=== PATIENT | female | born 1930 | race Hispanic/Latino ===

== ENCOUNTER 2017-03-24 20:48 | Inpatient (IN) | payer MEDICARE ==
[2017-03-24 20:53] VITALS: BMI 24.7
--- NOTE | 2017-03-24 21:17 | ED PDOC ---
Arrival/HPI - General Chief Complaint: Trauma Time Seen by Provider: 03/24/17 20:52 Historian: Patient, Family - History of Present Illness Narrative History of Present Illness (Text): 03/24/17 21:15 Margaret Adames is an 87 year old female, whose past medical history includes atrial fibrillation and hypertension, who presents to the emergency department accompanied by family status post fall today. Daughter states patient fell on to the floor earlier today while trying to get up from her couch. Daughter states she did not witness the fall and notes patient was unable to get up from the floor on her own. Patient is unable to ambulate and is complaining of urinary incontinence. Patient does not regularly take blood thinners. Patient denies any fever, chills, chest pain, shortness of breath, abdominal pain, nausea, vomiting, diarrhea, urinary symptoms, back pain, neck pain, headache, dizziness, vision changes, focal neurological deficits, or any other complaints. PMD: Dr. Yoel Tabor Poker Room Manager: Dr. Gisele Pinedo Time/Duration: Other (today) Symptom Onset: Gradual Symptom Course: Unchanged Activities at Onset: Light Context: Standing, Home, Tripped Past Medical History - Provider Review Nursing Documentation Reviewed: Yes - Infectious Disease Hx of Infectious Diseases: None - Reproductive Menopause: Yes - Cardiac Hx Cardiac Arrhythmia: Yes - Psychiatric Hx Substance Use: No - Anesthesia Hx Anesthesia: No Hx Anesthesia Reactions: No Hx Malignant Hyperthermia: No Family/Social History - Physician Review Nursing Documentation Reviewed: Yes Family/Social History: Unknown Family HX Smoking Status: Never Smoked Hx Alcohol Use: No Hx Substance Use: No Allergies/Home Meds Allergies/Adverse Reactions: Allergies No Known Allergies Allergy (Unverified 03/24/17 21:17) Home Medications: Home Meds Medication Instructions Recorded Confirmed Aspirin [Ecotrin] 81 mg PO DAILY 03/24/17 03/24/17 Digoxin 125 mcg PO DAILY 03/24/17 03/24/17 Nadolol/Bendroflumethiazide 20 mg PO DAILY 03/24/17 03/24/17 [[place] 40-5 Tablet] Review of Systems - Physician Review All systems were reviewed & negative as marked: Yes - Review of Systems Constitutional: Normal. absent: Fevers Eyes: Normal ENT: Normal Respiratory: Normal. absent: SOB, Cough Cardiovascular: Normal. absent: Chest Pain Gastrointestinal: Normal. absent: Abdominal Pain, Diarrhea, Nausea, Vomiting Genitourinary Female: Urine Output Changes Musculoskeletal: Normal. absent: Back Pain, Neck Pain Skin: Normal Neurological: Normal Endocrine: Normal Hemo/Lymphatic: Normal Psychiatric: Normal Physical Exam Vital Signs Reviewed: Yes Vital Signs Temp Pulse Resp BP Pulse Ox 03/24/17 22:49 71 16 147/72 98 03/24/17 20:53 98.7 F 68 20 185/85 H 99 Temperature: Afebrile Blood Pressure: Hypertensive Pulse: Regular Respiratory Rate: Normal Appearance: Positive for: Well-Appearing, Non-Toxic, Comfortable Pain Distress: None Mental Status: Positive for: Alert and Oriented X 3 - Systems Exam Head: Present: Atraumatic, Normocephalic Pupils: Present: PERRL Extroacular Muscles: Present: EOMI Conjunctiva: Present: Normal Mouth: Present: Moist Mucous Membranes Neck: Present: Normal Range of Motion Respiratory/Chest: Present: Clear to Auscultation, Good Air Exchange. No: Respiratory Distress, Accessory Muscle Use Cardiovascular: Present: Regular Rate and Rhythm, Normal S1, S2. No: Murmurs Abdomen: Present: Normal Bowel Sounds. No: Tenderness, Distention, Peritoneal Signs Back: Present: Normal Inspection. No: CVA Tenderness, Midline Tenderness Upper Extremity: Present: Normal Inspection, Normal ROM, NORMAL PULSES, Neurovascularly Intact, Capillary Refill < 2s. No: Cyanosis, Edema, Tenderness , Swelling, Erythema Lower Extremity: Present: NORMAL PULSES, Normal ROM, Erythema (Erythema to left anterior knee surface), Neurovascularly Intact. No: Edema, Swelling, Deformity , Temperature Abnormalties Neurological: Present: GCS=15, CN II-XII Intact, Speech Normal Skin: Present: Warm, Dry, Normal Color. No: Rashes Psychiatric: Present: Alert, Oriented x 3, Normal Insight, Normal Concentration Medical Decision Making ED Course and Treatment: 03/24/17 21:15 Impression: 87 year old female presents s/p fall, unable to ambulate, c/o urinary incontinence. Plan: -- CT Head w/o contrast -- EKG -- CXR -- XR Hips -- XR Left Knee -- Labs, cardiac enzymes -- Urinalysis, urine cultures -- Reassess and disposition Progress Notes: Reviewed EKG, a fib at 60 bpm. LAD. Anteroseptal infarct. 03/24/17 22:42 Reviewed radiology, CXR shows no acute processes. XR Left Knee shows no acute processes/fracture. XR Hips: Bones/joints: Moderate degenerative disease. Diffuse bony demineralization. No acute fracture. No dislocation. Soft tissues: Unremarkable. IMPRESSION: Degenerative disease, without acute fracture. 03/24/17 23:[address] Head, shows: Brain: No acute intracranial hemorrhage. Age-appropriate periventricular white matter disease. No edema. Ventricles: Age-appropriate ventriculomegaly. Bones: No acute displaced fracture. Sinuses: Unremarkable as visualized. No acute sinusitis. Mastoid air cells: Unremarkable as visualized. No mastoid effusion. IMPRESSION: No acute intracranial hemorrhage, or suspicious mass effect 03/25/17 00:[address] Ponce, who is aware and agrees with plan. Accepts pt in to his service. Pt will go to remote telemetry observation for near-syncope and UTI. Pt is no acute distress. Discussed results and hospital observation plan with family and pt, who are aware and verbalize understanding. - Lab Interpretations Lab Results: 03/24/17 21:20 03/24/17 21:20 Lab Results 03/25/17 10:05: Digoxin 0.7 L 03/24/17 21:42: Urine Color yellow, Urine Appearance Slight-cloudy, Urine pH 7.0 , Ur Specific [place] 1.020, Urine Protein 30 H, Urine Glucose (UA) Negative, Urine Ketones Negative, Urine Blood Large H, Urine Nitrate Positive H, Urine Bilirubin Negative, Urine Urobilinogen 0.2, Ur Leukocyte Esterase Large H, Urine RBC 25 - 30, Urine WBC 5 - 10, Ur Epithelial Cells Many, Amorphous Sediment Small, Urine Bacteria Small 03/24/17 21:20: Sodium 135, Potassium 3.9, Chloride 96 L, Carbon Dioxide 29, Anion Gap 14, BUN 20, Creatinine 0.8, Est GFR ( Amer) > 60, Est GFR (Non- Af Amer) > 60, Random Glucose 120 H, Calcium 10.8 H, Total Bilirubin 1.0, AST 36 , ALT 38, Alkaline Phosphatase 42, Lactate Dehydrogenase 476, Total Creatine Kinase 68, Troponin I 0.02, Total Protein 7.7, Albumin 4.3, Globulin 3.4, Albumin/Globulin Ratio 1.3 03/24/17 21:20: WBC 13.1 H, RBC 4.35, Hgb 13.6, Hct 39.3, MCV 90.3, MCH 31.3, MCHC 34.6, RDW 13.4, Plt Count 207, MPV 10.0 03/24/17 21:20: PT 12.6 H, INR 1.15 H, APTT 31.3 I have reviewed the lab results: Yes - RAD Interpretation Radiology Orders: 03/24/17 21:18 CHEST PORTABLE [RAD] Stat 03/24/17 21:19 HEAD W/O CONTRAST [CT] Stat 03/24/17 21:20 Hip Bi with Pelvis Fall Protocol [HIP MIN 2V W/ PELVIS JESSICA] [RAD] Stat KNEE LEFT 2 VIEWS (AP & LAT) [RAD] Stat Numerical Control Machine Operator: ED Physician, Radiologist - EKG Interpretation Interpreted by ED Physician: Yes Type: 12 lead EKG - Medication Orders Current Medication Orders: Acetaminophen (Tylenol 325mg Tab) 650 mg PO Q4H PRN PRN Reason: pain Last Admin: 03/25/17 11:21 Dose: 650 mg [facility] Pain/Vitals Document 03/25/17 11:21 STATISTICAL FINANCIAL ANALYST (Rec: 03/25/17 11:21 STATISTICAL FINANCIAL ANALYST [id number]) Pain Reassessment Is This A Pain ReAssessment? Yes Sleep Is patient sleeping during reassessment? No Presence of Pain Presence of Pain Yes Location Pain Location Body [employer] [place] Re-Assess: [facility] Pain/Vitals Document 03/25/17 12:21 STATISTICAL FINANCIAL ANALYST (Rec: 03/25/17 12:26 STATISTICAL FINANCIAL ANALYST [id number]) Pain Reassessment Is This A Pain ReAssessment? Yes Sleep Is patient sleeping during reassessment? No Presence of Pain Presence of Pain No Aspirin (Ecotrin) 81 mg PO DAILY REPLACED BY [facility] Last Admin: 03/25/17 10:29 Dose: 81 mg Bacitracin (Bacitracin) 2 ea TOP BID REPLACED BY [facility] Last Admin: 03/25/17 11:21 Dose: 2 ea Docusate Sodium (Colace) 200 mg PO BID REPLACED BY [facility] Last Admin: 03/25/17 10:29 Dose: 200 mg Last Bowel Movement Document 03/25/17 10:29 STATISTICAL FINANCIAL ANALYST (Rec: 03/25/17 10:29 STATISTICAL FINANCIAL ANALYST [id number]) Last Bowel Movement Last Bowel Movement 03/25/17 Ceftriaxone Sodium (Rocephin 1 Gram Ivpb) 1 gm in 100 mls @ 100 mls/hr IVPB DAILY MATT PRN Reason: Protocol Last Admin: 03/25/17 10:29 Dose: 100 mls/hr eMAR Start Stop Document 03/25/17 10:29 STATISTICAL FINANCIAL ANALYST (Rec: 03/25/17 10:30 STATISTICAL FINANCIAL ANALYST [id number]) Intravenous Solution Start Date 03/25/17 Start Time 10:30 End Date 03/25/17 End time 11:30 Total Infusion Time 60 Discontinued Medications Acetaminophen (Tylenol 325mg Tab) 650 mg PO STAT STA Stop: 03/25/17 00:27 Last Admin: 03/25/17 00:30 Dose: 650 mg MAR Pain/Vitals Document 03/25/17 00:30 JOL (Rec: 03/25/17 00:48 JOL [id number]) Pain Reassessment Is This A Pain ReAssessment? No Sleep Is patient sleeping during reassessment? No Presence of Pain Presence of Pain Yes Pain Scale Used Pain Scale Used Numeric Location Pain Location Body [employer] [place] Intensity 6 Scale Used Numeric Ceftriaxone Sodium (Rocephin 1 Gram Ivpb) 1 gm in 100 mls @ 200 mls/hr IV ONCE STA PRN Reason: Protocol Stop: 03/25/17 00:05 Last Admin: 03/24/17 23:52 Dose: 200 mls/hr eMAR Start Stop Document 03/24/17 23:52 JOL (Rec: 03/24/17 23:52 JOL [id number]) Intravenous Solution Start Date 03/24/17 Start Time 23:52 End Date 03/25/17 End time 00:22 Total Infusion Time 30 Sodium Chloride (Sodium Chloride 0.9%) 1,000 mls @ 999 mls/hr IV .Q1H1M STA Stop: 03/25/17 00:36 Last Admin: 03/24/17 23:52 Dose: 999 mls/hr eMAR Start Stop Document 03/24/17 23:52 JOL (Rec: 03/24/17 23:52 JOL [id number]) Intravenous Solution Start Date 03/24/17 Start Time 23:52 End Date 03/25/17 End time 00:53 Total Infusion Time 61 - Scribe Statement The provider has reviewed the documentation as recorded by the Scribharris Ordoñez All medical record entries made by the Scribe were at my direction and personally dictated by me. I have reviewed the chart and agree that the record accurately reflects my personal performance of the history, physical exam, medical decision making, and the department course for this patient. I have also personally directed, reviewed, and agree with the discharge instructions and disposition. Disposition/Present on Arrival - Present on Arrival Any Indicators Present on Arrival: No History of DVT/PE: No History of Uncontrolled Diabetes: No Urinary Catheter: No History of Decub. Ulcer: No History Surgical Site Infection Following: None - Disposition Have Diagnosis and Disposition been Completed?: Yes Diagnosis: Near syncope, UTI (urinary tract infection) Disposition: HOSPITALIZED Disposition Time: 00:15 Patient Plan: Observation Patient Problems: Current Active Problems Problem Status Onset Near syncope Acute UTI (urinary tract infection) Acute Condition: GOOD
[2017-03-24 21:35] LABS: HEMATOCRIT 39.3 % (36.0-48.0); MEAN CELL VOLUME 90.3 fl (80.0-105.0); MEAN CORPUSCULAR HEMOGLOBIN 31.3 pg (25.0-35.0); MEAN CORPUSCULAR HGB CONC 34.6 g/dl (31.0-37.0); RED CELL DISTRIBUTION WIDTH 13.4 % (11.5-14.5); WHITE BLOOD COUNT 13.1 10^3/ul (4.5-11.0)
[2017-03-24 21:42] LABS: INR 1.15 (0.93-1.08); PARTIAL THROMBOPLASTIN TIME 31.3 Seconds (25.1-36.5)
[2017-03-24 21:43] LABS: ALB/GLOB RATIO 1.3 (1.1-1.8); ALKALINE PHOSPHATASE 42 U/L (38-126); ALT/SGPT 38 U/L (7-56); AST/SGOT 36 U/L (14-36); BLOOD UREA NITROGEN 20 mg/dL (7-21); CALCIUM 10.8 mg/dL (8.4-10.5); CARBON DIOXIDE 29 mmol/L (21-33); CHLORIDE 96 mmol/L (98-107); GFR AFRICAN-AMERICAN > 60; GLUCOSE,RANDOM 120 mg/dL (70-110); POTASSIUM 3.9 mmol/L (3.6-5.0); SODIUM 135 mmol/L (132-148); TOTAL PROTEIN 7.7 g/dL (5.8-8.3)
[2017-03-24 21:48] LABS: URINE APPEARANCE SLIGHT-CLOUDY (CLEAR); URINE BILIRUBIN NEGATIVE (NEGATIVE); URINE BLOOD LARGE (NEGATIVE); URINE GLUCOSE (UA) NEGATIVE (NEGATIVE); URINE KETONE NEGATIVE (NEGATIVE); URINE LEUKOCYTE ESTERASE LARGE Leu/uL (NEGATIVE); URINE PROTEIN 30 mg/dL (<30 mg/dL); URINE UROBILINOGEN 0.2 E.U./dL (<1 E.U./dL)
[2017-03-24 21:54] LABS: TROPONIN I 0.02 ng/mL
[2017-03-24 21:54] LABS: URINE AMORPHOUS SEDIMENT SMALL; URINE BACTERIA SMALL (NEG); URINE EPITHELIAL CELLS MANY /hpf (0-5); URINE RBC 25 - 30 /hpf (0-2)
--- NOTE | 2017-03-24 22:49 | RAD ---
EXAM: XR Bilateral Hips With Pelvis When Performed, 2 Views CLINICAL HISTORY: 87 years old, female; Injury or trauma; Fall; Initial encounter; Blunt trauma (contusions or hematomas); Bilateral; Hip TECHNIQUE: Two views of the bilateral hips, with pelvis when performed. COMPARISON: No relevant prior studies available. FINDINGS: Bones/joints: Moderate degenerative disease. Diffuse bony demineralization. No acute fracture. No dislocation. Soft tissues: Unremarkable. IMPRESSION: Degenerative disease, without acute fracture.
--- NOTE | 2017-03-24 23:06 | CT ---
EXAM: CT Head Without Intravenous Contrast CLINICAL HISTORY: 87 years old, female; Injury or trauma; Fall; Initial encounter; Sprain or strain TECHNIQUE: Axial computed tomography images of the head/brain without intravenous contrast. All CT scans at this facility use one or more dose reduction techniques, viz.: automated exposure control; ma/kV adjustment per patient size (including targeted exams where dose is matched to indication; i.e. head); or iterative reconstruction technique. COMPARISON: No relevant prior studies available. FINDINGS: Brain: No acute intracranial hemorrhage. Age-appropriate periventricular white matter disease. No edema. Ventricles: Age-appropriate ventriculomegaly. Bones: No acute displaced fracture. Sinuses: Unremarkable as visualized. No acute sinusitis. Mastoid air cells: Unremarkable as visualized. No mastoid effusion. IMPRESSION: No acute intracranial hemorrhage, or suspicious mass effect.
[2017-03-24] MEDS ORDERED: cefTRIAXone 1 gm 1 GM/100 ML BAG IV STA (23:36)
[2017-03-24] MEDS ORDERED: Sodium Chloride 0.9% 1,000 ML IV STA (23:36)
--- NOTE | 2017-03-25 09:58 | RAD ---
PROCEDURE: Left Knee Radiographs. HISTORY: Pain. COMPARISON: None. FINDINGS: BONES: Normal. No fracture. JOINTS: Normal. No osteoarthritis. JOINT EFFUSION: None. OTHER FINDINGS: None. IMPRESSION: Normal radiographs of the left knee.
--- NOTE | 2017-03-25 09:59 | RAD ---
HISTORY: fever COMPARISON: No prior. FINDINGS: LUNGS: No active pulmonary disease. PLEURA: No significant pleural effusion identified, no pneumothorax apparent. CARDIOVASCULAR: Mild cardiomegaly OSSEOUS STRUCTURES: No significant abnormalities. VISUALIZED UPPER ABDOMEN: Normal. OTHER FINDINGS: None. IMPRESSION: No active disease.
[2017-03-25] MEDS: cefTRIAXone 1 gm 1 GM/100 ML BAG IVPB SCH (10:29)
[2017-03-25] MEDS: Bacitracin 500 Units/gm Oint Foilpak UD TOP SCH ×2 (11:21→17:32)
--- NOTE | 2017-03-25 21:02 | CARD ---
APPROVED REPORT EKG Measurement Heart [id number] <Conclusion> Atrial fibrillation Left axis deviation Anteroseptal infarct, age undetermined Abnormal ECG
--- NOTE | 2017-03-26 01:00 | CP.PCM.PN ---
Subjective - Date & Time of Evaluation Date of Evaluation: 03/26/17 Time of Evaluation: 01:00 - Subjective Subjective: Nurse calls and tells that patient has had two pauses on monitor. 2.03,2.54 seconds each. Earlier had 4 pauses in the day time, was called. was also made aware. Asymptomatic now. She is sleeping.As per [place] she had neck pain earlier but is okay now. Was on nadolol and digoxin at home. Digoxin level is 0.7. This 87 year old white woman was admitted after a fall,for near syncope, has Leukocytosis, UTI. Has PMH of atrial fibrillation, HTN. Objective - Vital Signs/Intake and Output Vital Signs (last 24 hours): Temp Pulse Resp BP Pulse Ox 98.9 F 52 L 20 133/54 L 98 03/25/17 17:21 03/25/17 18:00 03/25/17 17:21 03/25/17 17:21 03/25/17 17:21 Intake and Output: 03/25/17 03/26/17 18:59 06:59 Intake Total 540 360 Output Total 775 300 Balance -235 60 - Medications Medications: Current Medications Acetaminophen (Tylenol 325mg Tab) 650 mg PO Q4H PRN PRN Reason: pain Last Admin: 03/25/17 17:31 Dose: 650 mg Aspirin (Ecotrin) 81 mg PO DAILY [facility] Last Admin: 03/25/17 10:29 Dose: 81 mg Bacitracin (Bacitracin) 2 ea TOP BID [facility] Last Admin: 03/25/17 17:32 Dose: 2 ea Docusate Sodium (Colace) 200 mg PO BID [facility] Last Admin: 03/25/17 17:29 Dose: Not Given Ceftriaxone Sodium (Rocephin 1 Gram Ivpb) 1 gm in 100 mls @ 100 mls/hr IVPB DAILY MATT PRN Reason: Protocol Last Admin: 03/25/17 10:29 Dose: 100 mls/hr - Labs Labs: PT 12.6 SECONDS (9.4-12.5) H 03/24/17 21:20 INR 1.15 (0.93-1.08) H 03/24/17 21:20 APTT 31.3 Seconds (25.1-36.5) 03/24/17 21:20 Most Recent Lab Values WBC 13.1 10^3/ul (4.5-11.0) H 03/24/17 21:20 RBC 4.35 10^6/uL (3.5-6.1) 03/24/17 21:20 Hgb 13.6 g/dL (12.0-16.0) 03/24/17 21:20 Hct 39.3 % (36.0-48.0) 03/24/17 21:20 MCV 90.3 fl (80.0-105.0) 03/24/17 21:20 MCH 31.3 pg (25.0-35.0) 03/24/17 21:20 MCHC 34.6 g/dl (31.0-37.0) 03/24/17 21:20 RDW 13.4 % (11.5-14.5) 03/24/17 21:20 Plt Count 207 10^3/uL (120.0-450.0) 03/24/17 21:20 MPV 10.0 fl (7.0-11.0) 03/24/17 21:20 PT 12.6 SECONDS (9.4-12.5) H 03/24/17 21:20 INR 1.15 (0.93-1.08) H 03/24/17 21:20 APTT 31.3 Seconds (25.1-36.5) 03/24/17 21:20 Sodium 135 mmol/L (132-148) 03/24/17 21:20 Potassium 3.9 mmol/L (3.6-5.0) 03/24/17 21:20 Chloride 96 mmol/L (98-107) L 03/24/17 21:20 Carbon Dioxide 29 mmol/L (21-33) 03/24/17 21:20 Anion Gap 14 (10-20) 03/24/17 21:20 BUN 20 mg/dL (7-21) 03/24/17 21:20 Creatinine 0.8 mg/dL (0.7-1.2) 03/24/17 21:20 Est GFR ( Amer) > 60 03/24/17 21:20 Est GFR (Non-Af Amer) > 60 03/24/17 21:20 Random Glucose 120 mg/dL (70-110) H 10/21/17 21:20 Calcium 10.8 mg/dL (8.4-10.5) H 03/24/17 21:20 Total Bilirubin 1.0 mg/dL (0.2-1.3) 03/24/17 21:20 AST 36 U/L (14-36) 03/24/17 21:20 ALT 38 U/L (7-56) 03/24/17 21:20 Alkaline Phosphatase 42 U/L (38-126) 03/24/17 21:20 Lactate Dehydrogenase 476 U/L (333-699) 03/24/17 21:20 Total Creatine Kinase 68 U/L (35-230) 03/24/17 21:20 Troponin I 0.02 ng/mL 03/24/17 21:20 Total Protein 7.7 g/dL (5.8-8.3) 03/24/17 21:20 Albumin 4.3 g/dL (3.0-4.8) 03/24/17 21:20 Globulin 3.4 gm/dL 03/24/17 21:20 Albumin/Globulin Ratio 1.3 (1.1-1.8) 03/24/17 21:20 Urine Color yellow (YELLOW) 03/24/17 21:42 Urine Appearance Slight-cloudy (CLEAR) 03/24/17 21:42 Urine pH 7.0 (4.7-8.0) 03/24/17 21:42 Ur Specific [place] 1.020 (1.005-1.035) 03/24/17 21:42 Urine Protein 30 mg/dL (<30 mg/dL) H 03/24/17 21:42 Urine Glucose (UA) Negative mg/dL (NEGATIVE) 03/24/17 21:42 Urine Ketones Negative mg/dL (NEGATIVE) 03/24/17 21:42 Urine Blood Large (NEGATIVE) H 03/24/17 21:42 Urine Nitrate Positive (NEGATIVE) H 03/24/17 21:42 Urine Bilirubin Negative (NEGATIVE) 03/24/17 21:42 Urine Urobilinogen 0.2 E.U./dL (<1 E.U./dL) 03/24/17 21:42 Ur Leukocyte Esterase Large [place]/uL (NEGATIVE) H 03/24/17 21:42 Urine RBC 25 - 30 /hpf (0-2) 03/24/17 21:42 Urine WBC 5 - 10 /hpf (0-6) 03/24/17 21:42 Ur Epithelial Cells Many /hpf (0-5) 03/24/17 21:42 Amorphous Sediment Small 03/24/17 21:42 Urine Bacteria Small (NEG) 03/24/17 21:42 Digoxin 0.7 ng/mL (0.8-2.0) L 03/25/17 10:05 - Constitutional Appears: Well, No Acute Distress - Head Exam Head Exam: ATRAUMATIC, NORMAL INSPECTION, NORMOCEPHALIC - Eye Exam Eye Exam: Normal appearance - ENT Exam ENT Exam: Normal External Ear Exam - Neck Exam Neck Exam: Normal Inspection - Respiratory Exam Respiratory Exam: NORMAL BREATHING PATTERN - Cardiovascular Exam Cardiovascular Exam: Bradycardia. absent: JVD - GI/Abdominal Exam GI & Abdominal Exam: absent: Distended - Rectal Exam Rectal Exam: Deferred - Exam Additional comments: Deferred. - Extremities Exam Extremities Exam: Normal Inspection - Back Exam Back Exam: NORMAL INSPECTION - Neurological Exam Additional comments: Asleep now. - Psychiatric Exam Additional comments: Asleep now. - Skin Skin Exam: Normal Color Assessment and Plan - Assessment and Plan (Free Text) Assessment: Sinus pauses. Near syncope. Sinus bradycardia. HTN. Atrial fibrillation history. Plan: Observation. Keep code cart by room. If frequent pauses, increase in pause duration, and patient is symptomatic , will transfer patient to CCU.
--- NOTE | 2017-03-26 09:22 | HP ---
CHIEF COMPLAINT AND HISTORY OF PRESENT ILLNESS: This is an 87-year-old female, who is coming into the hospital because of a fall. The patient has pas medical history of atrial fibrillation, hypertension. She said she has been taking medications. Her daughter is at the bedside. She said she had found her on the floor earlier yesterday. She tried to get up from the couch and had a fall. She denies any loss of consciousness. She had no incontinence. She has no chest pain. No shortness of breath. No abdominal pain. No back pain. No dysuria, frequency. No nocturia. No weakness in the arms or legs. ALLERGIES: NO KNOWN DRUG ALLERGIES. HOME MEDICATIONS: Aspirin, digoxin, nadolol and bendroflumethiazide. PAST MEDICAL HISTORY: Atrial fibrillation and hypertension. SOCIAL HISTORY: No smoking or drinking. PHYSICAL EXAMINATION: VITAL SIGNS: Temperature is 98.1, pulse of 58, blood pressure 130/52, respirations 20. Height is 5 feet 2 inches, weight is 135 pounds. BMI is 24.7. GENERAL: The patient lying in bed, uncomfortable, and in no acute distress. HEENT: Atraumatic and normocephalic. Anicteric sclerae. Moist mucosa. [place] conjunctivae. No oral lesions. NECK: No JVD, anterior and posterior adenopathy, thyromegaly, or bruits. CARDIOVASCULAR: Regular rate, bradycardia. LUNGS: Clear to auscultation bilaterally. No wheezes, rales, or rhonchi. ABDOMEN: Bowel sounds are positive. Soft, nontender and nondistended. No hepatosplenomegaly. No rebound and no guarding. EXTREMITIES: No cyanosis, clubbing, or edema. NEUROLOGIC: No facial asymmetry. Tongue is midline. No uvula deviation. Power is 5/5 upper extremity and lower extremity. Sensation intact in upper extremity and lower extremity. PSYCHIATRIC: She is awake, alert and oriented x3. No anxiety or depression. She has normal affect. GENITOURINARY: No CVA tenderness. VASCULAR: 2+ pulses in the carotid pulses and pedal pulses. SKIN: No erythema or nodules SPINE: Shows normal curvature. LABORATORY DATA: White count 13.1, hemoglobin 13.6, INR is 1.1. Sodium is 135, potassium is 3.9, creatinine is 0.8, alkaline phosphatase is 42. Urine shows blood is large, nitrates are positive, bilirubin is negative. Toxicology shows digoxin is 0.7. Chest x-ray done shows no active disease. CT of the head done shows no acute intracranial hemorrhage or suspicious mass. X-ray of the knee of the left side is normal. Bilateral hip x-rays shows degenerative disease without acute fracture. ASSESSMENT: 1. Fall. 2. Bradycardia. 3. Atrial fibrillation. 4. Hypertension. 5. Urinary tract infection. 6. Constipation. PLAN: The patient is admitted to the hospital because of bradycardia. The patient has atrial fibrillation on his EKG with a QTc of 382, it is atrial fibrillation at the rate of 60. The patient has digoxin level that is 0.7. She is on a beta-brandi so I will hold the patient's beta-brandi for now as well as hold the patient's digoxin and the patient is going to see Dr. Pinedo for consultation. The urine may possibly shows urinary tract infection. She has been started on Rocephin for antibiotics. Urine cultures have been done. The patient is going to continue her aspirin. She is on Colace for constipation. The patient is going to need to continue admission to the hospital. I did speak to the patient's daughter at the bedside to give her an update on the patient's diagnosis and plan of care. Neo Ponce MD
--- NOTE | 2017-03-26 09:46 | CARD ---
APPROVED REPORT EKG Measurement Heart [id number] <Conclusion> Atrial fibrillation Left axis deviation PRWP Anteroseptal infarct, age undetermined NSSTW changes No change
[2017-03-26] MEDS: Bacitracin 500 Units/gm Oint Foilpak UD TOP SCH ×2 (10:32→18:15)
[2017-03-26] MEDS: Clotrimazole/Betamethasone Cream(15 gm) TOP SCH ×2 (10:33→18:15)
[2017-03-26] MEDS: cefTRIAXone 1 gm 1 GM/100 ML BAG IVPB SCH (10:33)
--- NOTE | 2017-03-26 12:45 | CON ---
DATE: 03/26/2017 INDICATIONS: Fall at home, atrial fibrillation with slow ventricular rates. HISTORY OF PRESENT ILLNESS: This is an 87-year-old woman with history of hypertension and chronic atrial fibrillation, who fell at home. The circumstances are not completely clear. Apparently, she has had difficulty walking on that day and when getting out of bed fell to the floor. She was unable to get up. She was brought to the emergency room. She underwent evaluation. There was no evidence of fracture. CT scan was unremarkable. She was admitted to [address] [place], [place] [address]etry. She has been found to have atrial fibrillation with slow ventricular rates, but is otherwise remains stable. She has diminished hearing. It is difficult to communicate with her. Her daughter is at the bedside. There was no chest pain, shortness of breath, orthopnea, PND, prior syncope, palpitations, edema, claudication, fever, chills, cough, sputum production, hemoptysis, abdominal pain, nausea, vomiting, diarrhea, constipation or melena. PAST MEDICAL HISTORY: Notable for hypertension, chronic atrial fibrillation, diminished hearing. There is no history of rheumatic fever, myocardial infarction, angina, congestive heart failure, stroke, TIA, diabetes, or gout. MEDICATIONS AT THE TIME OF ADMISSION: Included Corzide, digoxin, and aspirin. ALLERGIES: THERE ARE NO KNOWN MEDICATION ALLERGIES. SOCIAL HISTORY: She lives at home. Her son watches over her. She was ambulatory until recently, but limited. She does not smoke cigarette. She does not drink alcohol. FAMILY HISTORY: Noncontributory. REVIEW OF SYSTEMS: A 10-point review of systems through her daughter is otherwise unremarkable. PHYSICAL EXAMINATION: GENERAL: She is a well-developed elderly woman, lying in bed, on 3R, in no acute distress. VITAL SIGNS: Notable for atrial fibrillation, 39 to 65 beats per minute, some 2.0 - 2.5 second pauses are noted. She is afebrile. Blood pressure 133/54, respirations 20, and O2 saturation 98% on nasal cannula. HEENT AND NECK: Reveals no neck vein distention, thyromegaly, or carotid bruit. Mucous membranes are moist. Conjunctivae are pink. Neck is supple. CHEST: Lung ortiz clear. HEART: Revealed an irregular rhythm. There is a soft systolic murmur along the left sternal border. ABDOMEN: Soft. Bowel sounds are present. No mass, organomegaly, tenderness, rebound, or guarding. No CVA tenderness. EXTREMITIES: No cyanosis, clubbing, or edema. NEUROLOGIC: Awake, alert with diminished hearing. PSYCHIATRIC: Normal as to mood and affect. SKIN: Warm and dry. LABORATORY AND IMAGING DATA: EKG demonstrates atrial fibrillation with leftward axis, anterior septal myocardial infarction, poor R wave progression, nonspecific ST wave changes. A chest x-ray reveals no active disease, it was a portable study. A CT scan of the head reveals no acute intracranial hemorrhage or suspicious mass effect. Hip and pelvis x-ray reveals degenerative disease, no acute fracture. X-ray of the left knee was unremarkable. White count 13,100, hemoglobin 13.6, hematocrit 39.3, and platelet count normal. PT/INR and PTT unremarkable. Electrolytes, BUN, creatinine and blood sugars unremarkable. Calcium 10.8. LFTs unremarkable. CK 68, troponin 0.02. Urinalysis is noted. Digoxin level 0.7. IMPRESSION: The patient is an 87-year-old woman with chronic atrial fibrillation and hypertension, on Corzide and digoxin, who fell at home after developing some gait instability. The cause of the fall is not clearat this time, but bradyarrhythmia is a possible cause given that telemetry has shown atrial fibrillation with slow ventricular rates and a few long pauses. PLAN: At this time, I will discontinue digoxin and Corzide (which contains nadolol). We will keep her on telemetry and make adjustments to her medications based on her response to the discontinuation of digoxin and nadolol. If it is thought that bradyarrhythmia is the cause of her falling, a permanent pacemaker may be indicated. I will order an echocardiogram, thyroid functions, stool for occult blood. She has had a urine culture sent and she is on antibiotics. I will follow along with you. I will make additional recommendations based on her clinical course. Hopefully, a conservative course of management will be possible. This has been discussed with her daughter at the bedside. Gareth Pinedo MD [facility]ENTERSamson
--- NOTE | 2017-03-26 22:45 | CP.PCM.PN ---
Subjective - Date & Time of Evaluation Date of Evaluation: 03/26/17 Time of Evaluation: 08:40 - Subjective Subjective: Pt's RN stated pt is reported to show a change in her cardiac rhythm,an EKG was done ,it needs to be seen and pt needs to be evaluated. Pt's moniter shows AFib/Flutter ,so does her EKG.The rate is in the 60s.There are non specific changes.(the Ekg is same as before.) Pt seen .She has no complaints. VS are stable. Chart reviewed.She had multiple pauses noted yesterday and has been asymptomatic. She was admitted for a fall. PMH:AFib,HTN Objective - Vital Signs/Intake and Output Vital Signs (last 24 hours): Temp Pulse Resp BP Pulse Ox 99.4 F 61 18 131/60 97 03/26/17 16:00 03/26/17 16:00 03/26/17 16:00 03/26/17 16:00 03/26/17 16:00 Intake and Output: 03/26/17 03/27/17 18:59 06:59 Intake Total 540 480 Output Total 300 300 Balance 240 180 - Medications Medications: Current Medications Acetaminophen (Tylenol 325mg Tab) 650 mg PO Q4H PRN PRN Reason: pain Last Admin: 03/25/17 17:31 Dose: 650 mg Aspirin (Ecotrin) 81 mg PO DAILY [facility] Last Admin: 03/26/17 10:33 Dose: 81 mg Bacitracin (Bacitracin) 2 ea TOP BID [facility] Last Admin: 03/26/17 18:15 Dose: 2 ea Betamethasone/Clotrimazole (Lotrisone) 0 gm TOP BID [facility] Last Admin: 03/26/17 18:15 Dose: 1 applic Docusate Sodium (Colace) 200 mg PO BID [facility] Last Admin: 03/26/17 18:15 Dose: 200 mg Ceftriaxone Sodium (Rocephin 1 Gram Ivpb) 1 gm in 100 mls @ 100 mls/hr IVPB DAILY [facility] PRN Reason: Protocol Last Admin: 03/26/17 10:33 Dose: 100 mls/hr - Labs Labs: PT 12.6 SECONDS (9.4-12.5) H 03/24/17 21:20 INR 1.15 (0.93-1.08) H 03/24/17 21:20 APTT 31.3 Seconds (25.1-36.5) 03/24/17 21:20 - Constitutional Appears: No Acute Distress - Head Exam Head Exam: ATRAUMATIC, NORMAL INSPECTION, NORMOCEPHALIC - Eye Exam Eye Exam: PERRL - ENT Exam ENT Exam: Mucous Membranes Moist - Neck Exam Neck Exam: Normal Inspection - Respiratory Exam Respiratory Exam: Clear to Ausculation Bilateral, NORMAL BREATHING PATTERN - Cardiovascular Exam Cardiovascular Exam: Irregular Rhythm - GI/Abdominal Exam GI & Abdominal Exam: Soft, Normal Bowel Sounds. absent: Tenderness - Extremities Exam Extremities Exam: Normal Inspection. absent: Calf Tenderness, Pedal Edema - Neurological Exam Neurological Exam: Alert, Awake, Oriented x3 - Psychiatric Exam Psychiatric exam: Normal Affect - Skin Skin Exam: Dry, Warm Assessment and Plan - Assessment and Plan (Free Text) Assessment: AFib/AFlutter Plan: Observe pt for now. BMP and Mag level ordered stat.
[2017-03-26 23:05] LABS: BLOOD UREA NITROGEN 20 mg/dL (7-21); CALCIUM 9.6 mg/dL (8.4-10.5); CARBON DIOXIDE 26 mmol/L (21-33); CHLORIDE 103 mmol/L (98-107); GFR AFRICAN-AMERICAN > 60; GLUCOSE,RANDOM 125 mg/dL (70-110); MAGNESIUM 1.7 mg/dL (1.7-2.2); POTASSIUM 3.8 mmol/L (3.6-5.0); SODIUM 137 mmol/L (132-148)
[2017-03-27 06:26] LABS: HEMATOCRIT 37.4 % (36.0-48.0); MEAN CORPUSCULAR HEMOGLOBIN 30.4 pg (25.0-35.0); MEAN CORPUSCULAR HGB CONC 33.4 g/dl (31.0-37.0); MEAN PLATELET VOLUME 9.7 fl (7.0-11.0); RED CELL DISTRIBUTION WIDTH 13.7 % (11.5-14.5); WHITE BLOOD COUNT 11.7 10^3/ul (4.5-11.0)
[2017-03-27 06:57] LABS: ALB/GLOB RATIO 1.2 (1.1-1.8); ALKALINE PHOSPHATASE 44 U/L (38-126); ALT/SGPT 48 U/L (7-56); AST/SGOT 39 U/L (14-36); BILIRUBIN,TOTAL 0.7 mg/dL (0.2-1.3); BLOOD UREA NITROGEN 18 mg/dL (7-21); CARBON DIOXIDE 28 mmol/L (21-33); CHLORIDE 103 mmol/L (95-110); GFR AFRICAN-AMERICAN > 60; GLUCOSE,RANDOM 124 mg/dL (70-110); POTASSIUM 3.8 mmol/L (3.6-5.0); SODIUM 139 mmol/L (132-148); TOTAL PROTEIN 6.8 g/dL (5.8-8.3)
--- NOTE | 2017-03-27 07:58 | CP.PCM.PN ---
Subjective - Date & Time of Evaluation Date of Evaluation: 03/27/17 Time of Evaluation: 07:00 - Subjective Subjective: Stable on 2R. No CP or SOB or dizziness. her daughter is at the bedside. V/S noted. AF with moderate VRs. No long pauses. PE: Lungs: clear Cor.: irreg S1S2 Abd.: soft Ext.: no edema Neuro.: alert. Diminished hearing. Labs noted. Echo: Preliminary: Nl LV fx. See report. Urine C+S: + GNR Objective - Vital Signs/Intake and Output Vital Signs (last 24 hours): Temp Pulse Resp BP Pulse Ox 99.4 F 68 18 131/60 97 03/26/17 16:00 03/26/17 22:00 03/26/17 16:00 03/26/17 16:00 03/26/17 16:00 Intake and Output: 03/27/17 03/27/17 06:59 18:59 Intake Total 480 0 Output Total 300 250 Balance 180 -250 - Medications Medications: Current Medications Acetaminophen (Tylenol 325mg Tab) 650 mg PO Q4H PRN PRN Reason: pain Last Admin: 03/25/17 17:31 Dose: 650 mg Aspirin (Ecotrin) 81 mg PO DAILY [facility] Last Admin: 03/26/17 10:33 Dose: 81 mg Bacitracin (Bacitracin) 2 ea TOP BID [facility] Last Admin: 03/26/17 18:15 Dose: 2 ea Betamethasone/Clotrimazole (Lotrisone) 0 gm TOP BID [facility] Last Admin: 03/26/17 18:15 Dose: 1 applic Docusate Sodium (Colace) 200 mg PO BID [facility] Last Admin: 03/26/17 18:15 Dose: 200 mg Ceftriaxone Sodium (Rocephin 1 Gram Ivpb) 1 gm in 100 mls @ 100 mls/hr IVPB DAILY [facility] PRN Reason: Protocol Last Admin: 03/26/17 10:33 Dose: 100 mls/hr - Labs Labs: 03/27/17 05:30 03/27/17 05:30 PT 12.6 SECONDS (9.4-12.5) H 03/24/17 21:20 INR 1.15 (0.93-1.08) H 03/24/17 21:20 APTT 31.3 Seconds (25.1-36.5) 03/24/17 21:20 Assessment and Plan - Assessment and Plan (Free Text) Assessment: Fall at home, uncertain cause: AF with slow VR, gait instability, mechanical fall. AF HBP UTI Diminished hearing Plan: D/C dig., Corzide (which contains nadolol) Continue tel. Titrate meds based on AF/VR off dig and nadolol Consider A/C fo chronic AF: probably too risky given recent fall, advanced age. OOB as smita/PT Check urne C+S. D/C Patel soon if possible.
[2017-03-27] MEDS: Clotrimazole/Betamethasone Cream(15 gm) TOP SCH ×2 (09:26→17:32)
[2017-03-27] MEDS: Bacitracin 500 Units/gm Oint Foilpak UD TOP SCH ×2 (09:26→17:31)
--- NOTE | 2017-03-27 09:27 | PN ---
DATE: 03/26/2017 SUBJECTIVE: Patient has no complaints of any chest pain, shortness of breath, or headaches. PHYSICAL EXAMINATION: VITAL SIGNS: Temperature is 98.5, pulse of 60, blood pressure 155/58, respiration is 20 GENERAL: The patient is lying in bed, flat, comfortable. HEENT: No oral lesion. Anicteric sclerae. Moist mucosa. NECK: No JVD, adenopathy, or thyromegaly. CARDIOVASCULAR: S1 and S2, regular. No murmurs, rubs, or gallops. LUNGS: Clear to auscultation bilaterally. No wheeze, rales, or rhonchi. ABDOMEN: Bowel sounds are positive, soft, nontender and nondistended. EXTREMITIES: No cyanosis, clubbing or edema. SKIN: In the left side of the neck, there is a small erythematous rash, maculopapular.. LABORATORY DATA: White count of 13.1, hemoglobin 13.6, creatinine 0.8. ASSESSMENT: 1. Bradycardia, asymptomatic. 2. Hypertension. 3. Urinary tract infection secondary to gram-negative rods. PLAN: The patient is currently asymptomatic. She was offered beta blockers as well as digoxin. She does become bradycardic into the 40s at times. The patient is going to be on Rocephin for antibiotics. Urine cultures are pending. I did speak to the patient's daughter at the bedside to give her an update on the patient's diagnosis and plan of care. I will start clotrimazole cream on her . Neo Ponce MD
[2017-03-27] MEDS: cefTRIAXone 1 gm 1 GM/100 ML BAG IVPB SCH (09:34)
[2017-03-27] MEDS ORDERED: Mineral Oil Enema 135 ml RC ONE (09:37)
--- NOTE | 2017-03-27 09:47 | CARD ---
APPROVED REPORT EXAM: Two-dimensional and M-mode echocardiogram with Doppler and color Doppler. Other Information Quality : GoodRhythm : INDICATION Atrial Fibrillation Syncope 2D DIMENSIONS Left Atrium (2D)4.2 (1.6-4.0cm)IVSd1.2 (0.7-1.1cm) LVDd3.9 (3.9-5.9cm)PWd1.2 (0.7-1.1cm) LVDs2.5 (2.5-4.0cm)FS (%) 36.4 % LVEF (%)66.0 (>50%) M-Mode DIMENSIONS Aortic Root3.10 (2.2-3.7cm)Aortic Cusp Exc.1.30 (1.5-2.0cm) Aortic Valve AoV Peak [id number]/s Mitral Valve E/A ratio0.0 TDI E/Lateral E'0.0E/Medial E'0.0 Tricuspid Valve TR Peak [id number] [id number] Peak Gr.14mmHg [id number] LEFT VENTRICLE The left ventricle is normal size. There is normal left ventricular wall thickness. The left ventricular function is normal. The left ventricular ejection fraction is within the normal range. There is normal LV segmental wall motion. RIGHT VENTRICLE The right ventricle is normal size. ATRIA The left atrium is moderately dilated. The right atrium is mildly dilated. The interatrial septum is intact with no evidence for an atrial septal defect. AORTIC VALVE The aortic valve is mildly calcified. MITRAL VALVE The mitral valve is normal in structure. Mitral regurgitation is mild. TRICUSPID VALVE The tricuspid valve is normal in structure. There is mild tricuspid regurgitation. PULMONIC VALVE The pulmonic valve is not well visualized. There is mild pulmonic valvular regurgitation. GREAT VESSELS The aortic root is normal in size. PERICARDIAL EFFUSION There is no pericardial effusion. <Conclusion> The left ventricle is normal size. There is normal left ventricular wall thickness. The left ventricular function is normal. The aortic valve is mildly calcified. Aortic sclerosis. Mitral regurgitation is mild. There is mild tricuspid regurgitation.
--- NOTE | 2017-03-27 10:07 | CARD ---
APPROVED REPORT EKG Measurement Heart [id number] <Conclusion> Atrial fibrillation Left axis deviation Low voltage QRS, limb leads Cannot rule out Inferior infarct, age undetermined Cannot rule out Anteroseptal infarct, age undetermined No change
[2017-03-27 21:22] VITALS: RESP 20; O2SAT 97
[2017-03-28 08:44] VITALS: BP 148/74; TEMP 97.6
[2017-03-28] MEDS: Bacitracin 500 Units/gm Oint Foilpak UD TOP SCH (09:31)
[2017-03-28] MEDS: Clotrimazole/Betamethasone Cream(15 gm) TOP SCH (09:31)
[2017-03-28] MEDS: cefTRIAXone 1 gm 1 GM/100 ML BAG IVPB SCH (09:32)
--- NOTE | 2017-03-28 10:35 | PN ---
DATE: 03/27/2017 SUBJECTIVE: The patient has no complaints of any chest pain or shortness of breath. She was able to sleep well last night, . PHYSICAL EXAMINATION: VITAL SIGNS: Temperature is 98, pulse is 54, blood pressure is 130/79 and respirations 18. GENERAL: The patient is lying in bed, flat, comfortable. HEENT: No oral lesion. Anicteric sclerae. Moist mucosa. NECK: No JVD, adenopathy, or thyromegaly. CARDIOVASCULAR: S1 and S2, regular. No murmurs, rubs, or gallops. LUNGS: Clear to auscultation bilaterally. No wheeze, rales, or rhonchi. ABDOMEN: Bowel sounds are positive, soft, nontender and nondistended. EXTREMITIES: No cyanosis, clubbing or edema. LABS: White count of 11.7 and hemoglobin 12.5. Creatinine 0.7. ASSESSMENT: 1. Asymptomatic bradycardia. 2. Hypertension. 3. Urinary tract infection secondary to Escherichia coli. PLAN: The patient has Escherichia coli UTI that is very sensitive. She was seen by Physical Therapy. I did speak to the patient's daughter this morning to give an update on the patient's diagnosis and plan of care. I have ordered for TCU evaluation to be done. I discontinued the patient's Patel catheter. We will transfer to TCU tomorrow. The patient is on aspirin daily. She is on Rocephin for antibiotics. She is being followed by Dr. Pinedo. The patient's digoxin was discontinued, was not given any since the patient been admitted nor the nadolol that patient was on. The patient may need to be in atrial fibrillation. We will refer to Dr. Pinedo for decision. Neo Ponce MD
[2017-03-28 12:02] VITALS: PULSE 74
--- NOTE | 2017-03-28 16:27 | PN ---
DATE: 03/28/2017 SUBJECTIVE: The patient is seen, sitting in a chair on 3R. She is currently comfortable. She is receiving IV antibiotics. Her digoxin and Corzide remain on hold. MEDICATIONS: Her current medications include aspirin, Rocephin, Colace and bacitracin. OBJECTIVE: GENERAL: She is a very elderly woman, who appears comfortable at rest. VITAL SIGNS: Her blood pressure is 148/74 with pulse of 74 irregularly irregular, respirations are 16. She is afebrile. HEENT AND NECK: No JVD. CHEST: Few scattered rhonchi. HEART: PMI displaced laterally with an irregularly irregular rhythm. ABDOMEN: Soft, nontender with normoactive bowel sounds. EXTREMITIES: No edema. DIAGNOSTIC DATA: No blood work pending from this morning. Her last digoxin level was 0.7. IMPRESSION: 1. Atrial fibrillation with slow to moderate ventricular response, improved of negative chronotropes. 2. Mild mitral regurgitation. 3. Recent fall, details unclear. RECOMMENDATIONS: The patient is scheduled for transfer to TCU for additional antibiotic therapy and physical therapy. Her rate control therapy remains on hold and can be re-instituted at a smaller dose as needed. We have to follow and make further recommendations as appropriate. Nehemias Romo MD MTDD
--- NOTE | 2017-03-28 21:29 | DS ---
DATE: 03/28/2017 SUBJECTIVE: The patient is an 87-year-old female, who had come to the hospital, was found to have UTI secondary to E. coli. She also is asymptomatic from her bradycardia. She had been on dig and Nadolol. This was discontinued. The patient was mildly confused yesterday. She does have underlying dementia that is mild, most likely Alzheimer's type. I had a long discussion with the patient's daughter this morning to help understand about the patient's delirium and the multiple risk factors for delirium while she is in the hospital frequently but not limited to mild dementia, hearing impairment, visual impairment from macular degeneration, Patel catheter placement, UTI, etc. The patient is going to a transitional care unit for rehab. PHYSICAL EXAMINATION: VITAL SIGNS: Temperature is 97.6, pulse is 78, blood pressure 148/74, respirations 20, O2 saturation is 97%. GENERAL: The patient is lying in bed, flat, comfortable. HEENT: No oral lesion. Anicteric sclerae. Moist mucosa. NECK: No JVD, adenopathy, or thyromegaly. CARDIOVASCULAR: S1 and S2, regular. No murmurs, rubs, or gallops. LUNGS: Clear to auscultation bilaterally. No wheeze, rales, or rhonchi. ABDOMEN: Bowel sounds are positive, soft, nontender and nondistended. EXTREMITIES: No cyanosis, clubbing or edema. ASSESSMENT: 1. Asymptomatic bradycardia. 2. Hypertension. 3. Urinary tract infection secondary to Escherichia coli. PLAN: The patient is going to continue with physical therapy. She is going to a transitional care unit. She is on the Rocephin for antibiotics. I will change her to p.o. antibiotics. Condition is stable. Activities, increase as tolerated. Neo Ponce MD
== END 2017-03-28 12:11 | DRG 690 ==
LOC: ED 20:48 → ERH 03-25 00:22 → 3RNO 03-25 01:37 → OBSVTOIN 03-25 11:15 → 3RNO 03-25 15:32
PROVIDERS: ADMIT Internal Medicine Nephrology; ATTEND Internal Medicine Nephrology
DX: N39.0 Urinary tract infection, site not specified (principal); I48.92 Unspecified atrial flutter; I48.2 Chronic atrial fibrillation; G30.9 Alzheimer's disease, unspecified; F02.80 Dementia in other diseases classified elsewhere, unspecified severity, without behavioral disturbance, psychotic disturbance, mood disturbance, and anxiety; I10 Essential (primary) hypertension; B96.20 Unspecified Escherichia coli [E. coli] as the cause of diseases classified elsewhere; R00.1 Bradycardia, unspecified; K59.00 Constipation, unspecified; I34.0 Nonrheumatic mitral (valve) insufficiency; R55 Syncope and collapse; H54.7 Unspecified visual loss; H35.30 Unspecified macular degeneration; R26.2 Difficulty in walking, not elsewhere classified; H91.90 Unspecified hearing loss, unspecified ear; Z91.81 History of falling; Z79.82 Long term (current) use of aspirin

== ENCOUNTER 2017-03-28 12:28 | Inpatient (IN) | payer OTHER, MEDICARE ==
[2017-03-28 12:53] VITALS: BMI 25.6
[2017-03-28] MEDS ORDERED: Influenza Vaccine 60 mcg/0.5 mL SYR (4YR UP) IM ONE (14:40)
[2017-03-28] MEDS ORDERED: Pneumococcal 23-Valent Vaccine IM ONE (14:40)
[2017-03-28] MEDS: Amoxicillin-Clav 500-125 mg Tab PO SCH (21:23)
[2017-03-29] MEDS: Amoxicillin-Clav 500-125 mg Tab PO SCH ×3 (05:22→21:12)
[2017-03-29] MEDS ORDERED: cefTRIAXone 1 gm 1 GM/100 ML BAG IVPB SCH (06:00)
--- NOTE | 2017-03-29 08:05 | CP.PCM.PN ---
Subjective - Date & Time of Evaluation Date of Evaluation: 03/29/17 Time of Evaluation: 07:00 - Subjective Subjective: Stable on TCU. No CP or SOB. Was OOB to BR with assistance. V/S noted. PE: Lungs: clear Cor.: irreg S1S2, Sys. murmur Abd.: soft Ext.: no edema Neuro.: alert, diminished hearing Urine + E. coli Echo: Nl LV, Aortic sclerosis, mild MR Objective - Vital Signs/Intake and Output Vital Signs (last 24 hours): Temp Pulse Resp BP Pulse Ox 99.4 F 66 20 150/64 96 03/28/17 17:32 03/28/17 17:32 03/28/17 17:32 03/28/17 17:32 03/28/17 17:32 Intake and Output: 03/29/17 03/29/17 06:59 18:59 Intake Total 360 Balance 360 - Medications Medications: Current Medications Acetaminophen (Tylenol 325mg Tab) 650 mg PO Q4H PRN; Protocol PRN Reason: Fever >100.4 F Amoxicillin/Clavulanate Potassium (Augmentin 500 Mg-125 Mg Tab) 1 tab PO Q8 [facility] PRN Reason: Protocol Stop: 04/04/17 22:01 Last Admin: 03/29/17 05:22 Dose: 1 tab Aspirin (Ecotrin) 81 mg PO 0800 [facility] PRN Reason: Protocol Bacitracin (Bacitracin) 0 gm TOP BID [facility] PRN Reason: Protocol Betamethasone/Clotrimazole (Lotrisone) 0 ml TOP BID [facility] PRN Reason: Protocol Docusate Sodium (Colace) 100 mg PO BID [facility] PRN Reason: Protocol Last Admin: 03/28/17 17:51 Dose: 100 mg Assessment and Plan - Assessment and Plan (Free Text) Assessment: Fall at home: cause uncertain: mechanical vs. gait instability vs. Slow AF, etc AF with slow VR and 2.0 - 3.0 sec pauses while on dig and Corzide UTI HBP Diminished Hearing Plan: D/C dig. and Corzide If rapid AF can reinstitute low dose beta brandi and titrate IF slow rates/long pauses with sxs, PPM can be considered. Avoid neg. chronotropic antihypertensives. A/C for chronic AF: too risky given falls? Will d/w you. PT/Rehab Efforts.
[2017-03-29] MEDS: Bacitracin Ointment 30 GM TUBE TOP SCH (10:01)
[2017-03-29] MEDS: Clotrimazole/Betamethasone Lotion(30 ml) TOP SCH (10:02)
--- NOTE | 2017-03-29 11:22 | PN ---
DATE: 03/29/2017 SUBJECTIVE: The patient has no complaints of any chest pain. No shortness of breath. No headache. Her initial H and P was reviewed and I do agree with it. PHYSICAL EXAMINATION VITAL SIGNS: Temperature is 99.4, pulse of 66, blood pressure of 150/64, and respirations are 20. GENERAL: The patient is lying in bed, flat, comfortable. HEENT: No oral lesion. Anicteric sclerae. Moist mucosa. NECK: No JVD, adenopathy, or thyromegaly. CARDIOVASCULAR: S1 and S2, regular. No murmurs, rubs, or gallops. LUNGS: Clear to auscultation bilaterally. No wheeze, rales, or rhonchi. ABDOMEN: Bowel sounds are positive, soft, nontender and nondistended. EXTREMITIES: No cyanosis, clubbing or edema. ASSESSMENT: 1. Urinary tract infection secondary to Escherichia coli. 2. Dementia, Alzheimer's type. 3. Hypertension. 4. Asymptomatic bradycardia. 5. Delirium, improved. PLAN: The patient is currently on amoxicillin for antibiotics and she is going to continue Colace for constipation. The patient is on heart-healthy diet. I did speak to the patient's daughter at the bedside to give an update on the patient's diagnosis and plan of care. She is going to continue at the Transitional Care Unit. Her last white count was 11.4. Neo Ponce MD
[2017-03-30] MEDS: Amoxicillin-Clav 500-125 mg Tab PO SCH ×3 (05:53→21:27)
--- NOTE | 2017-03-30 07:31 | CP.PCM.PN ---
Subjective - Date & Time of Evaluation Date of Evaluation: 03/30/17 Time of Evaluation: 07:00 - Subjective Subjective: Stable on TCU. No CP or SOB. Was OOB to BR with assistance and ambulated in the halls with walker and assistance. Her daughter is at the bedside this AM and we spoke. V/S noted. P = 68 - 92 recorded PE: Lungs: clear Cor.: irreg S1S2, Sys. murmur Abd.: soft Ext.: no edema Neuro.: alert, diminished hearing Urine + E. coli Echo: Nl LV, Aortic sclerosis, mild MR Objective - Vital Signs/Intake and Output Vital Signs (last 24 hours): Temp Pulse Resp BP Pulse Ox 98.4 F 68 18 137/68 96 03/30/17 06:00 03/30/17 06:00 03/30/17 06:00 03/30/17 06:00 03/30/17 06:00 - Medications Medications: Current Medications Acetaminophen (Tylenol 325mg Tab) 650 mg PO Q4H PRN; Protocol PRN Reason: Fever >100.4 F Last Admin: 03/29/17 21:11 Dose: 650 mg Amoxicillin/Clavulanate Potassium (Augmentin 500 Mg-125 Mg Tab) 1 tab PO Q8 [facility] PRN Reason: Protocol Stop: 04/04/17 22:01 Last Admin: 03/30/17 05:53 Dose: 1 tab Aspirin (Ecotrin) 81 mg PO 0800 [facility] PRN Reason: Protocol Last Admin: 03/29/17 07:58 Dose: 81 mg Bacitracin (Bacitracin) 0 gm TOP BID [facility] PRN Reason: Protocol Last Admin: 03/29/17 10:01 Dose: 1 applic Betamethasone/Clotrimazole (Lotrisone) 0 ml TOP BID [facility] PRN Reason: Protocol Last Admin: 03/29/17 10:02 Dose: 1 applic Docusate Sodium (Colace) 100 mg PO BID [facility] PRN Reason: Protocol Last Admin: 03/29/17 17:52 Dose: 100 mg Assessment and Plan - Assessment and Plan (Free Text) Assessment: Fall at home: cause uncertain: mechanical vs. gait instability vs. Slow AF, etc AF with slow VR and 2.0 - 3.0 sec pauses while on dig and Corzide UTI HBP Diminished Hearing Plan: D/C dig. and Corzide If rapid AF can reinstitute low dose beta brandi and titrate IF slow rates/long pauses with sxs, PPM can be considered. Avoid neg. chronotropic antihypertensives. A/C for chronic AF: probably too risky given falls? Will d/w you. PT/Rehab Efforts.
[2017-03-30] MEDS: Clotrimazole/Betamethasone Lotion(30 ml) TOP SCH ×2 (11:00→17:43)
[2017-03-30] MEDS: Bacitracin Ointment 30 GM TUBE TOP SCH ×2 (11:00→17:42)
[2017-03-31] MEDS: Amoxicillin-Clav 500-125 mg Tab PO SCH ×3 (05:40→21:26)
--- NOTE | 2017-03-31 07:11 | CP.PCM.PN ---
Subjective - Date & Time of Evaluation Date of Evaluation: 03/31/17 Time of Evaluation: 07:00 - Subjective Subjective: Stable on TCU. No CP or SOB. Was OOB to BR with assistance and ambulated in the halls with walker and assistance. V/S noted. P = 68 - 92 recorded PE: Lungs: clear Cor.: irreg S1S2, Sys. murmur Abd.: soft Ext.: no edema Neuro.: alert, diminished hearing Urine + E. coli Echo: Nl LV, Aortic sclerosis, mild MR Objective - Vital Signs/Intake and Output Vital Signs (last 24 hours): Temp Pulse Resp BP Pulse Ox 97.4 F L 87 18 134/66 100 03/30/17 16:00 03/30/17 16:00 03/30/17 16:00 03/30/17 16:00 03/30/17 16:00 - Medications Medications: Current Medications Acetaminophen (Tylenol 325mg Tab) 650 mg PO Q4H PRN; Protocol PRN Reason: Fever >100.4 F Last Admin: 03/29/17 21:11 Dose: 650 mg Amoxicillin/Clavulanate Potassium (Augmentin 500 Mg-125 Mg Tab) 1 tab PO Q8 MATT PRN Reason: Protocol Stop: 04/04/17 22:01 Last Admin: 03/31/17 05:40 Dose: 1 tab Aspirin (Ecotrin) 81 mg PO 0800 MATT PRN Reason: Protocol Last Admin: 03/30/17 08:46 Dose: 81 mg Bacitracin (Bacitracin) 0 gm TOP BID MATT PRN Reason: Protocol Last Admin: 03/30/17 17:42 Dose: 1 applic Betamethasone/Clotrimazole (Lotrisone) 0 ml TOP BID MATT PRN Reason: Protocol Last Admin: 03/30/17 17:43 Dose: 1 applic Docusate Sodium (Colace) 100 mg PO BID MATT PRN Reason: Protocol Last Admin: 03/30/17 17:43 Dose: 100 mg Assessment and Plan - Assessment and Plan (Free Text) Assessment: Fall at home: cause uncertain: mechanical vs. gait instability vs. Slow AF, etc AF with slow VR and 2.0 - 3.0 sec pauses initially while on dig and Corzide UTI HBP Diminished Hearing Plan: D/C dig. and Corzide If rapid AF can reinstitute low dose beta brandi and titrate IF slow rates/long pauses with sxs, PPM can be considered. Avoid neg. chronotropic antihypertensives. A/C for chronic AF: probably too risky given falls? Will d/w you. PT/Rehab Efforts.
[2017-03-31] MEDS: Clotrimazole/Betamethasone Lotion(30 ml) TOP SCH ×2 (11:45→17:43)
[2017-03-31] MEDS: Bacitracin Ointment 30 GM TUBE TOP SCH ×2 (13:44→17:42)
--- NOTE | 2017-03-31 22:55 | CP.PCM.PN ---
Subjective - Date & Time of Evaluation Date of Evaluation: 03/31/17 Time of Evaluation: 12:00 - Subjective Subjective: comfortable in bed. No acute distress. Ambulating with support. No pain. Oral intake good. Daughter bed side. Objective - Vital Signs/Intake and Output Vital Signs (last 24 hours): Temp Pulse Resp BP Pulse Ox 97.9 F 81 20 113/67 95 03/31/17 17:48 03/31/17 17:48 03/31/17 17:48 03/31/17 17:48 03/31/17 17:48 Intake and Output: 03/31/17 04/01/17 18:59 06:59 Intake Total 680 Output Total 800 Balance -120 - Medications Medications: Current Medications Acetaminophen (Tylenol 325mg Tab) 650 mg PO Q4H PRN; Protocol PRN Reason: Fever >100.4 F Last Admin: 03/31/17 21:25 Dose: 650 mg Amoxicillin/Clavulanate Potassium (Augmentin 500 Mg-125 Mg Tab) 1 tab PO Q8 MATT PRN Reason: Protocol Stop: 04/04/17 22:01 Last Admin: 03/31/17 21:26 Dose: 1 tab Aspirin (Ecotrin) 81 mg PO 0800 MATT PRN Reason: Protocol Last Admin: 03/31/17 08:21 Dose: 81 mg Bacitracin (Bacitracin) 0 gm TOP BID MATT PRN Reason: Protocol Last Admin: 03/31/17 17:42 Dose: 1 applic Betamethasone/Clotrimazole (Lotrisone) 0 ml TOP BID MATT PRN Reason: Protocol Last Admin: 03/31/17 17:43 Dose: Not Given Docusate Sodium (Colace) 100 mg PO BID MATT PRN Reason: Protocol Last Admin: 03/31/17 17:43 Dose: 100 mg - Constitutional Appears: Chronically Ill - Head Exam Head Exam: ATRAUMATIC, NORMAL INSPECTION, NORMOCEPHALIC - Eye Exam Eye Exam: Normal appearance Pupil Exam: NORMAL ACCOMODATION - Neck Exam Neck Exam: Normal Inspection - Respiratory Exam Respiratory Exam: Clear to Ausculation Bilateral, NORMAL BREATHING PATTERN - Cardiovascular Exam Cardiovascular Exam: REGULAR RHYTHM, +S1, +S2 - Back Exam Back Exam: NORMAL INSPECTION - Neurological Exam Neurological Exam: Alert, Awake, CN II-XII Intact - Psychiatric Exam Psychiatric exam: Normal Affect - Skin Skin Exam: Normal Color, Warm Assessment and Plan - Assessment and Plan (Free Text) Assessment: 1. UTI, Ecoli. 2. leukocytosis 3. delerium 4. Dementia PLan : continue amoxicillin for UTI. participating in PT. leukocytosis resolving. dementia stable. Discussed with the daughter current status- stable.
[2017-04-01] MEDS: Amoxicillin-Clav 500-125 mg Tab PO SCH ×3 (05:40→22:10)
[2017-04-01] MEDS: Bacitracin Ointment 30 GM TUBE TOP SCH ×2 (09:29→17:36)
[2017-04-01] MEDS: Clotrimazole/Betamethasone Lotion(30 ml) TOP SCH ×3 (09:30→17:32)
--- NOTE | 2017-04-01 22:19 | PN ---
DATE: 04/01/2017 SUBJECTIVE: She is comfortable in bed, in no acute distress. She is ambulation with support. Oral intake is good. No nausea. No vomiting. No chest pain. No cough with expectoration. REVIEW OF SYSTEMS: As per HPI. Rest of 12-point review of systems reviewed and negative. PHYSICAL EXAMINATION: GENERAL: Comfortable in chair, sitting in chair. VITAL SIGNS: Temperature is 97.8, heart rate is 80 per minute, respiratory rate is 20 per minute, blood pressure is 113/67, and pulse ox is 95% on room air. HEENT: Normal. Oral mucosa is pale. NECK: No lymphadenopathy. CHEST: Air entry present and equal bilateral. No added sounds. CARDIOVASCULAR: S1 and S2 normal. No murmur. No gallop. ABDOMEN: Soft and nontender. No hepatosplenomegaly. EXTREMITIES: A 1+ edema bilaterally. LABORATORY DATA: Labs reviewed. MEDICATIONS: Tylenol 650 q. 4 hours p.r.n., Augmentin q. 8 hours, aspirin 81 mg daily, bacitracin local topical application, and Senna/Colace 100 mg p.o. b.i.d. Assessment: 1. Escherichia coli urinary tract infection. 2. Leukocytosis. 3. Delirium. 4. Dementia. PLAN: She is currently on Augmentin for UTI, Participating in physical therapy. Leukocytosis is resolving. Dementia is stable. Oral intake is good. Ashlee Thornton MD
[2017-04-02] MEDS: Amoxicillin-Clav 500-125 mg Tab PO SCH (05:55)
--- NOTE | 2017-04-02 07:57 | CP.PCM.PN ---
Subjective - Date & Time of Evaluation Date of Evaluation: 04/02/17 Time of Evaluation: 07:00 - Subjective Subjective: Stable on TCU. No CP or SOB. V/S noted. P = 68 - 95 recorded PE: Lungs: clear Cor.: irreg S1S2, Sys. murmur Abd.: soft Ext.: no edema Neuro.: alert, diminished hearing Urine + E. coli Echo: Nl LV, Aortic sclerosis, mild MR Objective - Vital Signs/Intake and Output Vital Signs (last 24 hours): Temp Pulse Resp BP Pulse Ox 97.7 F 95 H 18 112/61 96 04/02/17 06:00 04/02/17 06:00 04/02/17 06:00 04/02/17 06:00 04/02/17 06:00 Intake and Output: 04/02/17 04/02/17 06:59 18:59 Intake Total 480 Balance 480 - Medications Medications: Current Medications Acetaminophen (Tylenol 325mg Tab) 650 mg PO Q4H PRN; Protocol PRN Reason: Fever >100.4 F Last Admin: 04/01/17 22:10 Dose: 650 mg Aspirin (Ecotrin) 81 mg PO 0800 MATT PRN Reason: Protocol Last Admin: 04/01/17 08:40 Dose: 81 mg Bacitracin (Bacitracin) 0 gm TOP BID MATT PRN Reason: Protocol Last Admin: 04/01/17 17:36 Dose: Not Given Betamethasone/Clotrimazole (Lotrisone) 0 ml TOP BID MATT PRN Reason: Protocol Last Admin: 04/01/17 17:32 Dose: Not Given Docusate Sodium (Colace) 100 mg PO BID MATT PRN Reason: Protocol Last Admin: 04/01/17 17:35 Dose: Not Given Assessment and Plan - Assessment and Plan (Free Text) Assessment: Fall at home: cause uncertain: mechanical vs. gait instability vs. Slow AF, etc AF with slow VR and 2.0 - 3.0 sec pauses initially while on dig and Corzide UTI HBP Diminished Hearing Plan: D/C dig. and Corzide If rapid AF can reinstitute low dose beta brandi and titrate IF slow rates/long pauses with sxs, PPM can be considered. Avoid neg. chronotropic antihypertensives. A/C for chronic AF: probably too risky given falls? Will d/w you. No A/C. Continue ASA. PT/Rehab Efforts.
--- NOTE | 2017-04-02 08:41 | PN ---
DATE: 04/02/2017 SUBJECTIVE: The patient has no complaints of any chest pain. No shortness of breath. No headaches or dizziness. PHYSICAL EXAMINATION: VITAL SIGNS: Temperature is 97.7, pulse of 95, blood pressure is 112/61, respiration is 18. GENERAL: The patient is lying in bed, flat, comfortable. HEENT: No oral lesion. Anicteric sclerae. Moist mucosa. NECK: No JVD, adenopathy, or thyromegaly. CARDIOVASCULAR: S1 and S2, regular. No murmurs, rubs, or gallops. LUNGS: Clear to auscultation bilaterally. No wheeze, rales, or rhonchi. ABDOMEN: Bowel sounds are positive, soft, nontender and nondistended. EXTREMITIES: No cyanosis, clubbing or edema. ASSESSMENT: 1. Urinary tract infection, secondary to Escherichia coli, resolved. 2. Dementia, Alzheimer's type. 3. Hypertension. 4. Asymptomatic bradycardia. 5. Delirium, improved. PLAN: The patient is currently on amoxicillin for antibiotics. She is going to continue with the Colace for constipation. She is on aspirin daily. She is getting physical therapy. She is able to walk 300 feet with a rolling walker. She does need supervision. She does have episodes of confusion at times. Neo Ponce MD
[2017-04-02] MEDS: Clotrimazole/Betamethasone Lotion(30 ml) TOP SCH (10:34)
[2017-04-02] MEDS: Bacitracin Ointment 30 GM TUBE TOP SCH ×2 (10:35→17:19)
[2017-04-03 05:52] LABS: MEAN CELL VOLUME 90.4 fl (80.0-105.0); MEAN CORPUSCULAR HEMOGLOBIN 29.9 pg (25.0-35.0); MEAN PLATELET VOLUME 9.1 fl (7.0-11.0); RED CELL DISTRIBUTION WIDTH 13.5 % (11.5-14.5); WHITE BLOOD COUNT 13.3 10^3/ul (4.5-11.0)
[2017-04-03 06:03] LABS: ALKALINE PHOSPHATASE 49 U/L (38-126); ALT/SGPT 83 U/L (7-56); AST/SGOT 57 U/L (14-36); BILIRUBIN,TOTAL 0.6 mg/dL (0.2-1.3); BLOOD UREA NITROGEN 19 mg/dL (7-21); CALCIUM 9.6 mg/dL (8.4-10.5); CARBON DIOXIDE 24 mmol/L (21-33); CHLORIDE 104 mmol/L (95-110); GFR AFRICAN-AMERICAN > 60; GLUCOSE,RANDOM 115 mg/dL (70-110); POTASSIUM 4.2 mmol/L (3.6-5.0); SODIUM 134 mmol/L (132-148); TOTAL PROTEIN 6.2 g/dL (5.8-8.3)
--- NOTE | 2017-04-03 07:44 | CP.PCM.PN ---
Subjective - Date & Time of Evaluation Date of Evaluation: 04/03/17 Time of Evaluation: 07:00 - Subjective Subjective: Stable on TCU. No CP or SOB. Urinary incontinence reported. V/S noted. P = 80's - 95 recorded PE: Lungs: clear Cor.: irreg S1S2, Sys. murmur Abd.: soft Ext.: no edema Neuro.: alert, diminished hearing Urine + E. coli Echo: Nl LV, Aortic sclerosis, mild MR Labs noted Objective - Vital Signs/Intake and Output Vital Signs (last 24 hours): Temp Pulse Resp BP Pulse Ox 98.7 F 84 18 132/65 100 04/02/17 15:45 04/02/17 15:45 04/02/17 15:45 04/02/17 15:45 04/02/17 15:45 - Medications Medications: Current Medications Acetaminophen (Tylenol 325mg Tab) 650 mg PO Q4H PRN; Protocol PRN Reason: Fever >100.4 F Last Admin: 04/01/17 22:10 Dose: 650 mg Aspirin (Ecotrin) 81 mg PO 0800 MATT PRN Reason: Protocol Last Admin: 04/02/17 08:55 Dose: 81 mg Bacitracin (Bacitracin) 0 gm TOP BID MATT PRN Reason: Protocol Last Admin: 04/02/17 17:19 Dose: 1 applic Betamethasone/Clotrimazole (Lotrisone) 0 ml TOP BID MATT PRN Reason: Protocol Last Admin: 04/02/17 10:34 Dose: 1 applic Docusate Sodium (Colace) 100 mg PO BID MATT PRN Reason: Protocol Last Admin: 04/02/17 17:18 Dose: Not Given - Labs Labs: 04/03/17 05:25 04/03/17 05:25 Assessment and Plan - Assessment and Plan (Free Text) Assessment: Fall at home: cause uncertain: mechanical vs. gait instability vs. Slow AF, etc AF with slow VR and 2.0 - 3.0 sec pauses initially while on dig and Corzide UTI HBP Diminished Hearing Urinary incontinence Plan: D/C dig. and Corzide If rapid AF can reinstitute low dose beta brandi and titrate IF slow rates/long pauses with sxs, PPM can be considered. Avoid neg. chronotropic antihypertensives. A/C for chronic AF: I discussed this with Dr. Ponce. We will start Eliqis. Given age/wt will use 2.5 BID. PT/Rehab Efforts.
[2017-04-03] MEDS: Clotrimazole/Betamethasone Lotion(30 ml) TOP SCH ×2 (10:39→17:18)
[2017-04-03] MEDS: Bacitracin Ointment 30 GM TUBE TOP SCH ×2 (10:39→17:18)
--- NOTE | 2017-04-03 22:05 | PN ---
DATE: 04/03/2017 SUBJECTIVE: The patient has no complaints of any chest pain, no shortness of breath, no headaches. PHYSICAL EXAMINATION VITAL SIGNS: Temperature is 98.3, pulse of 74, blood pressure is 108/74 and respirations 14. GENERAL: The patient is lying in bed, flat, comfortable. HEENT: No oral lesion. Anicteric sclerae. Moist mucosa. NECK: No JVD, adenopathy, or thyromegaly. CARDIOVASCULAR: S1 and S2, regular. No murmurs, rubs, or gallops. LUNGS: Clear to auscultation bilaterally. No wheeze, rales, or rhonchi. ABDOMEN: Bowel sounds are positive, soft, nontender and nondistended. EXTREMITIES: No cyanosis, clubbing or edema. LABORATORY DATA: White count of 15.3 and hemoglobin 10.9. Creatinine 0.7. ASSESSMENT: 1. Atrial fibrillation, not on anticoagulation. 2. Bradycardia, improved, asymptomatic. 3. Delirium, resolved. 4. Hypertension. 5. Dementia, Alzheimer's type. PLAN: The patient is currently comfortable. She is doing well with physical therapy. The patient most likely need anticoagulation. I did speak to the patient's daughter at length and also with Dr. Pinedo. Dr. Pinedo agreed with starting the patient with Eliquis. I also believe that the patient being on the Eliquis has decreased her risk of stroke. I believe that the risks and benefits are in favor of placing her on anticoagulation. The patient is fairly independent. It would be a significant change in her quality of life if she had a stroke with deficits. I did have a long discussion with the patient's daughter to give her the risks and benefits in being on anticoagulation including but not limited to the benefit of decreasing stroke versus the risk of bleeding that could potentially be life threatening. She states that she will discuss this with her brother and with Dr. Pinedo. I will await her decision. Until then, I will hold off on anticoagulation. The patient is on heart-healthy diet and comfortable. Neo Ponce MD
--- NOTE | 2017-04-04 10:02 | DS ---
HISTORY OF PRESENT ILLNESS: This is an 87-year-old female who had come in to the transitional care unit for physical therapy. She initially had a UTI secondary to E. coli that has improved. The patient does have a history of atrial fibrillation, has not been on anticoagulation. I did speak to the patient's daughter and son this morning about anticoagulation and they prefer not to take the risk of bleeding, they do understand that the aspirin that they are asking is far inferior to anticoagulation. My recommendation was to continue anticoagulation to prevent stroke as that would probably be a worst outcome versus the risk of bleeding. I did advise them to take the opportunity to talk to cardiology regarding their advice. The patient is currently fairly independent, able to cook and take care of her and home. She is comfortable. She has no complaints of any chest pain, no shortness of breath. PHYSICAL EXAMINATION: VITAL SIGNS: Temperature is 98.3, pulse is 74, blood pressure is 108/74 and respiration is 14. GENERAL: The patient is lying in bed, flat, comfortable. HEENT: No oral lesion. Anicteric sclerae. Moist mucosa. NECK: No JVD, adenopathy, or thyromegaly. CARDIOVASCULAR: S1 and S2, regular. No murmurs, rubs, or gallops. LUNGS: Clear to auscultation bilaterally. No wheeze, rales, or rhonchi. ABDOMEN: Bowel sounds are positive, soft, nontender and nondistended. EXTREMITIES: No cyanosis, clubbing or edema. ASSESSMENT AND PLAN: 1. Atrial fibrillation, not on anticoagulation. 2. Bradycardia, improved, asymptomatic. 3. Delirium, resolved. 4. Hypertension. 5. Dementia, Alzheimer's type. PLAN: The patient is currently on aspirin daily. She is on Tylenol as needed. She is on Colace. She is not on digoxin or beta blockers because of bradycardia. She denies any symptoms. She is on a heart-healthy diet. She will be discharged home tomorrow, to follow up as an outpatient with her primary care doctor, Dr. Tabor and follow with Dr. Pinedo. CONDITION: Stable. ACTIVITY: Increase as tolerated. Neo Ponce MD
--- NOTE | 2017-04-04 12:38 | PN ---
DATE: 04/04/2017 SUBJECTIVE: The patient is seen sitting in chair on transitional care unit. She is seen in the presence of her son. She is comfortable at the present time. She denies any lightheadedness. She is participating in rehabilitation efforts and would like to go home. CURRENT MEDICATIONS: Include Colace, Ecotrin and Lotrisone. OBJECTIVE: GENERAL: She is a very elderly woman who appears comfortable at rest. VITAL SIGNS: Blood pressure is 108/74 with a pulse of 76 and irregularly irregular, respirations 14. She is afebrile. HEENT: No JVD. CHEST: Few scattered rhonchi. HEART: PMI displaced laterally with an irregularly irregular rhythm. ABDOMEN: Soft and nontender with normoactive bowel sounds. EXTREMITIES: No edema. DIAGNOSTIC DATA: No blood work pending from this morning. Hemoglobin and hematocrit from yesterday are 10.9 and 33.0. IMPRESSION: 1. Recent fall, etiology uncertain. 2. History of atrial fibrillation with slow ventricular response and intermittent pauses; subsequently, digoxin and Cozaar had been withheld. 3. Rest of the problems as noted. RECOMMENDATIONS: She will remain off antiarrhythmic therapy for the time being given her controlled rate of medication and recent slow ventricular response. She has been advised anticoagulation with Eliquis; however, her son prefers to hold off on this for the time being and we will discuss this further with Dr. Pinedo in the office next week. He has concerns about her potential for bleeding. The significant risk of cerebral vascular accident secondary to chronic atrial fibrillation was discussed at length with him as well as the suboptimal benefit of aspirin in this setting. He fully understands and plans on continue with aspirin for now. We will be happy to see as an outpatient. Nehemias Romo MD
[2017-04-04 15:49] VITALS: TEMP 97.6
[2017-04-04 17:22] VITALS: BP 132/68; PULSE 89; RESP 20; O2SAT 97
[2017-04-04] MEDS: Bacitracin Ointment 30 GM TUBE TOP SCH ×2 (17:27→17:29)
[2017-04-04] MEDS: Clotrimazole/Betamethasone Lotion(30 ml) TOP SCH (17:28)
== END 2017-04-05 09:31 | disposition home or self-care (01) | DRG 690 ==
LOC: TRCU 12:28
PROVIDERS: ADMIT Internal Medicine Nephrology; ATTEND Internal Medicine Nephrology
PROC: F07Z9FZ Gait Training/Functional Ambulation Treatment using Assistive, Adaptive, Supportive or Protective Equipment (ICD-10-PCS; principal; 2017-03-30)
PROC: F07Z8ZZ Transfer Training Treatment (ICD-10-PCS; 2017-03-30)
PROC: F07L6ZZ Therapeutic Exercise Treatment of Musculoskeletal System - Lower Back / Lower Extremity (ICD-10-PCS; 2017-03-30)
PROC: F08Z4FZ Home Management Treatment using Assistive, Adaptive, Supportive or Protective Equipment (ICD-10-PCS; 2017-04-03)
DX: N39.0 Urinary tract infection, site not specified (principal); B96.20 Unspecified Escherichia coli [E. coli] as the cause of diseases classified elsewhere; I48.2 Chronic atrial fibrillation; G30.9 Alzheimer's disease, unspecified; F02.80 Dementia in other diseases classified elsewhere, unspecified severity, without behavioral disturbance, psychotic disturbance, mood disturbance, and anxiety; R00.1 Bradycardia, unspecified; I10 Essential (primary) hypertension; H91.90 Unspecified hearing loss, unspecified ear; K59.00 Constipation, unspecified; R32 Unspecified urinary incontinence

== ENCOUNTER 2017-11-16 13:22 | Inpatient (IN) | payer MEDICARE ==
[2017-11-16 13:23] VITALS: BMI 25.6
--- NOTE | 2017-11-16 14:12 | ED PDOC ---
Arrival/HPI - General Chief Complaint: Trauma Time Seen by Provider: 11/16/17 13:40 Historian: Patient, Family - History of Present Illness Narrative History of Present Illness (Text): 87yo female with history of Afib, hypertension, currently on Ecotrin 325mg daily , brought to ER by her daughter for evaluation after she had a fall this morning. Per daughter, when she went to give the patient her lunch and found her on the floor. She states the patient was unable to get up and is complaining of a head injury and left thigh pain. She reports the patient was last seen normal 1 day ago. She denies any complaints of headache, loss of consciousness, vomiting, abdominal pain, chest pain, shortness of breath. No other complaints. PMD: Dr. Tabor Past Medical History - Provider Review Nursing Documentation Reviewed: Yes - Infectious Disease Hx of Infectious Diseases: None - Cardiac Hx Cardiac Disorders: Yes (Afib) Hx Hypertension: Yes - Musculoskeletal/Rheumatological Hx Falls: Yes (past) - Genitourinary/Gynecological Hx Reproductive Disorders: No - Psychiatric Hx Substance Use: No - Surgical History Hx Cholecystectomy: Yes - Anesthesia Hx Anesthesia: No Hx Anesthesia Reactions: No Hx Malignant Hyperthermia: No Family/Social History - Physician Review Nursing Documentation Reviewed: Yes Family/Social History: No Known Family HX Smoking Status: Never Smoked Hx Alcohol Use: No Hx Substance Use: No Allergies/Home Meds Allergies/Adverse Reactions: Allergies No Known Allergies Allergy (Verified 11/16/17 13:31) Home Medications: Home Meds Medication Instructions Recorded Confirmed Aspirin [Ecotrin] 81 mg PO DAILY 03/24/17 11/16/17 Review of Systems - Physician Review All systems were reviewed & negative as marked: Yes - Review of Systems Constitutional: Normal Eyes: absent: Vision Changes Respiratory: absent: SOB Cardiovascular: absent: Chest Pain Gastrointestinal: absent: Abdominal Pain, Vomiting Musculoskeletal: Other (left thigh pain) Neurological: absent: Headache, Dizziness, Focal Weakness Physical Exam Vital Signs Reviewed: Yes Vital Signs Temp Pulse Resp BP Pulse Ox 11/16/17 16:26 92 H 18 153/89 H 97 11/16/17 13:23 98 F 105 H 20 145/82 98 Appearance: Positive for: Well-Appearing, Non-Toxic, Comfortable - Systems Exam Head: Present: Contusion (2 cm contusion to occipital scalp) Pupils: Present: PERRL Extroacular Muscles: Present: EOMI Conjunctiva: Present: Normal Mouth: Present: Moist Mucous Membranes Neck: Present: Normal Range of Motion. No: MIDLINE TENDERNESS, Paraspinal Tenderness Respiratory/Chest: Present: Clear to Auscultation, Good Air Exchange. No: Respiratory Distress, Accessory Muscle Use Cardiovascular: Present: Regular Rate and Rhythm Abdomen: No: Tenderness, Distention, Peritoneal Signs Back: Present: Normal Inspection. No: Midline Tenderness, Paraspinal Tenderness Upper Extremity: Present: Normal Inspection, NORMAL PULSES. No: Cyanosis, Edema Lower Extremity: Present: NORMAL PULSES, Normal ROM, Tenderness (left lateral thigh) Neurological: Present: GCS=15, CN II-XII Intact Skin: Present: Warm, Dry, Normal Color. No: Rashes Psychiatric: Present: Alert, Oriented x 3, Normal Insight, Normal Concentration Medical Decision Making ED Course and Treatment: Impression: Fall, head injury Plan: -- CT Head w/o contrast -- Labs -- Urinalysis Progress: 11/16/17 16:03 Labs and Urinalysis reviewed, with no clinically significant abnormalities. Urinalysis does not indicate a UTI. 11/16/17 16:[address] Thornton (covering for Dr. Ponce) who accepts the patient for admission. She would like IV hydration and abx given. Bridging orders placed. - Lab Interpretations Lab Results: 11/16/17 14:20 11/16/17 14:20 Lab Results 11/16/17 15:25: Urine Color Yellow, Urine Appearance Clear, Urine pH 7.0, Ur Specific [place] 1.020, Urine Protein Trace H, Urine Glucose (UA) Negative, Urine Ketones Negative, Urine Blood Trace-lysed H, Urine Nitrate Negative, Urine Bilirubin Negative, Urine Urobilinogen 0.2, Ur Leukocyte Esterase Negative , Urine RBC 0 - 2, Urine WBC 1 - 3, Ur Epithelial Cells 1 - 3, Urine Bacteria Mod 11/16/17 14:20: Sodium 142, Potassium 3.8, Chloride 107, Carbon Dioxide 24, Anion Gap 14, BUN 27 H, Creatinine 0.8, Est GFR ( Amer) > 60, Est GFR ( Non-Af Amer) > 60, Random Glucose 107, Calcium 10.4, Total Bilirubin 0.5, AST 31 , ALT 31, Alkaline Phosphatase 46, Total Protein 7.0, Albumin 4.1, Globulin 3.0 , Albumin/Globulin Ratio 1.4 11/16/17 14:20: WBC 14.2 H, RBC 4.70, Hgb 14.5 D, Hct 41.9, MCV 89.1, MCH 30.9 , MCHC 34.6, RDW 14.1, Plt Count 219, MPV 9.1, Gran % 87.0 H, Lymph % (Auto) 10.0 L, [place] % (Auto) 2.8, Eos % (Auto) 0.1 L, Baso % (Auto) 0.1, Gran # 12.31 H , Lymph # (Auto) 1.4, [place] # (Auto) 0.4, Eos # (Auto) 0.0, Baso # (Auto) 0.02 - RAD Interpretation Narrative RAD Interpretations (Text): 11/16/17 14:57 CT Head w/o contrast FINDINGS: HEMORRHAGE: No intracranial hemorrhage. BRAIN: No mass effect or edema. No atrophy or chronic microvascular ischemic changes. VENTRICLES: Unremarkable. No hydrocephalus. CALVARIUM: Unremarkable. PARANASAL SINUSES: Unremarkable as visualized. No significant inflammatory changes. MASTOID AIR CELLS: Unremarkable as visualized. No inflammatory changes. OTHER FINDINGS: None. IMPRESSION: No acute findings Radiology Orders: 11/16/17 14:01 HEAD W/O CONTRAST [CT] Stat [employer] Supervisor: Radiologist - Medication Orders Current Medication Orders: Sodium Chloride (Sodium Chloride 0.9%) 1,000 mls @ 100 mls/hr IV .Q10H STA Stop: 11/17/17 02:46 Discontinued Medications Ceftriaxone Sodium (Rocephin 1 Gram Ivpb) 1 gm in 100 mls @ 100 mls/hr IVPB STAT STA PRN Reason: Protocol Stop: 11/16/17 17:44 Last Admin: 11/16/17 17:08 Dose: 100 mls/hr eMAR Start Stop Document 11/16/17 17:08 SRE (Rec: 11/16/17 17:09 SRE [id number]) Intravenous Solution Start Date 11/16/17 Start Time 17:09 End Date 11/16/17 End time 18:00 Total Infusion Time 51 Sodium Chloride (Sodium Chloride 0.9%) 1,000 mls @ 999 mls/hr IV .Q1H1M STA Stop: 11/16/17 17:45 Last Admin: 11/16/17 17:08 Dose: 999 mls/hr eMAR Start Stop Document 11/16/17 17:08 SRE (Rec: 11/16/17 17:08 SRE [id number]) Intravenous Solution Start Date 11/16/17 Start Time 16:50 End Date 11/16/17 End time 17:50 Total Infusion Time 60 - Scribe Statement The provider has reviewed the documentation as recorded by the Scribe (Vandana Gamez) Provider Attestation: All medical record entries made by the Scribe were at my direction and personally dictated by me. I have reviewed the chart and agree that the record accurately reflects my personal performance of the history, physical exam, medical decision making, and the department course for this patient. I have also personally directed, reviewed, and agree with the discharge instructions and disposition. Disposition/Present on Arrival - Present on Arrival Any Indicators Present on Arrival: No History of DVT/PE: No History of Uncontrolled Diabetes: No Urinary Catheter: No History of Decub. Ulcer: No History Surgical Site Infection Following: None - Disposition Have Diagnosis and Disposition been Completed?: Yes Diagnosis: Generalized weakness Disposition: HOSPITALIZED Disposition Time: 16:47 Condition: GOOD
[2017-11-16 14:31] LABS: BASO # 0.02 K/mm3 (0.0-2.0); BASO % 0.1 % (0.0-3.0); EOS % 0.1 % (1.5-5.0); GRAN # 12.31 (1.4-6.5); HEMOGLOBIN 14.5 g/dL (12.0-16.0); LYMPH # 1.4 (1.2-3.4); MEAN CELL VOLUME 89.1 fl (80.0-105.0); MEAN CORPUSCULAR HEMOGLOBIN 30.9 pg (25.0-35.0); MEAN CORPUSCULAR HGB CONC 34.6 g/dl (31.0-37.0); MEAN PLATELET VOLUME 9.1 fl (7.0-11.0); MONO # 0.4 (0.1-0.6); MONO % 2.8 % (1.0-6.0); RBC 4.7 10^6/uL (3.5-6.1); RED CELL DISTRIBUTION WIDTH 14.1 % (11.5-14.5); WHITE BLOOD COUNT 14.2 10^3/ul (4.5-11.0)
[2017-11-16 14:38] LABS: ALB/GLOB RATIO 1.4 (1.1-1.8); ALBUMIN 4.1 g/dL (3.0-4.8); ALT/SGPT 31 U/L (7-56); AST/SGOT 31 U/L (14-36); BLOOD UREA NITROGEN 27 mg/dL (7-21); CALCIUM 10.4 mg/dL (8.4-10.5); GFR AFRICAN-AMERICAN > 60; GFR NON-AFRICAN AMERICAN > 60
--- NOTE | 2017-11-16 14:59 | CT ---
PROCEDURE: CT HEAD WITHOUT CONTRAST. HISTORY: head injury COMPARISON: 03/24/2017 TECHNIQUE: Axial computed tomography images were obtained through the head/brain without intravenous contrast. Radiation dose: Total exam DLP = 846 mGy-cm. This CT exam was performed using one or more of the following dose reduction techniques: Automated exposure control, adjustment of the mA and/or kV according to patient size, and/or use of iterative reconstruction technique. FINDINGS: HEMORRHAGE: No intracranial hemorrhage. BRAIN: No mass effect or edema. No atrophy or chronic microvascular ischemic changes. VENTRICLES: Unremarkable. No hydrocephalus. CALVARIUM: Unremarkable. PARANASAL SINUSES: Unremarkable as visualized. No significant inflammatory changes. MASTOID AIR CELLS: Unremarkable as visualized. No inflammatory changes. OTHER FINDINGS: None. IMPRESSION: No acute findings
[2017-11-16 15:33] LABS: URINE BILIRUBIN NEGATIVE (NEGATIVE); URINE BLOOD TRACE-LYSED (NEGATIVE); URINE GLUCOSE (UA) NEGATIVE (NEGATIVE); URINE LEUKOCYTE ESTERASE NEGATIVE Leu/uL (NEGATIVE); URINE PROTEIN TRACE mg/dL (<30 mg/dL); URINE UROBILINOGEN 0.2 E.U./dL (<1 E.U./dL)
[2017-11-16 15:48] LABS: URINE APPEARANCE CLEAR (CLEAR); URINE COLOR YELLOW (YELLOW)
[2017-11-16 15:50] LABS: URINE BACTERIA MOD (NEG); URINE RBC 0 - 2 /hpf (0-2)
[2017-11-16] MEDS ORDERED: Sodium Chloride 0.9% 1,000 ML IV STA ×2 (16:45→16:47)
[2017-11-16] MEDS ORDERED: cefTRIAXone 1 gm 1 GM/100 ML BAG IVPB STA (16:45)
--- NOTE | 2017-11-16 21:19 | CARD ---
APPROVED REPORT EKG Measurement Heart [id number] <Conclusion> Atrial fibrillation Left axis deviation Anteroseptal infarct, age undetermined Abnormal ECG
[2017-11-17] MEDS: cefTRIAXone 1 gm 1 GM/100 ML BAG IVPB SCH (09:22)
--- NOTE | 2017-11-17 11:05 | PN ---
DATE: 11/16/2017 SUBJECTIVE: She is comfortable in bed, in no acute distress. No nausea, no vomiting. No events overnight. No fever, no cough with expectoration. REVIEW OF SYSTEMS: As per HPI. Rest of 12-point review of systems reviewed and negative. PHYSICAL EXAMINATION GENERAL: Comfortable in bed, in no acute distress. VITAL SIGNS: Temperature 98.7, heart rate 89 per minute, blood pressure 154/79, respiratory rate 20 per minute, oxygen saturation 98% on room air. HEENT: Pallor positive. NECK: No lymphadenopathy. CHEST: Air entry present and equal bilateral. No added sounds. CARDIOVASCULAR: S1 and S2 normal. No murmur. No gallop. ABDOMEN: Soft, nontender. No hepatosplenomegaly. EXTREMITIES: No edema. SKIN: No petechia. No rash. LABORATORY DATA: None current, from yesterday white count 14.2, hemoglobin 14.5, platelet 219. Creatinine 0.8. MEDICATIONS: Ceftriaxone 1 g daily, aspirin 81 mg daily, IV fluid at 80 mL an hour. ASSESSMENT: 1. Status post fall. 2. Leukocytosis. 3. Hypertension. 4. Atrial fibrillation. PLAN: We will continue ceftriaxone 1 g daily, IV fluid at 80 mL an hour, Pepcid 20 mg daily, aspirin 81 mg daily. Urine culture will be sent. If urine culture negative, we will discontinue antibiotics. We will replete the electrolytes. Renal function stable. Ashlee Thornton MD
[2017-11-17 11:09] LABS: BASO # 0.02 K/mm3 (0.0-2.0); BASO % 0.3 % (0.0-3.0); EOS # 0.2 (0.0-0.7); EOS % 2.9 % (1.5-5.0); GRAN # 5.05 (1.4-6.5); GRAN % 65.9 % (50.0-68.0); HEMOGLOBIN 12.3 g/dL (12.0-16.0); LYMPH # 1.4 (1.2-3.4); LYMPH % 18.7 % (22.0-35.0); MEAN CELL VOLUME 90.2 fl (80.0-105.0); MEAN CORPUSCULAR HEMOGLOBIN 30.1 pg (25.0-35.0); MEAN CORPUSCULAR HGB CONC 33.4 g/dl (31.0-37.0); MEAN PLATELET VOLUME 9.4 fl (7.0-11.0); MONO # 0.9 (0.1-0.6); MONO % 12.2 % (1.0-6.0); RBC 4.08 10^6/uL (3.5-6.1); RED CELL DISTRIBUTION WIDTH 14.5 % (11.5-14.5); WHITE BLOOD COUNT 7.7 10^3/ul (4.5-11.0)
--- NOTE | 2017-11-17 11:12 | HP ---
DATE OF EXAM: 11/16/2017 HISTORY OF PRESENT ILLNESS Ms. Adames is 87-year-old female brought to the hospital by daughter when she found her on the floor. She has history of atrial fibrillation, heart rate controlled with current medication. She was found to have leukocytosis. UA was negative. CT head was negative for any injury. No shortness of breath. History of recurrent fall in the past. PAST MEDICAL HISTORY: Recurrent fall, hypertension, atrial fibrillation. PAST SURGICAL HISTORY: Cholecystectomy. ALLERGIES: NO KNOWN DRUG ALLERGIES. PERSONAL HISTORY: Never smoked. No history of alcohol abuse. FAMILY HISTORY: Noncontributory. ALLERGIES: NO KNOWN DRUG ALLERGIES. MEDICATIONS: Aspirin 81 mg daily. REVIEW OF SYSTEMS: As per HPI. Rest of 12-point review of systems reviewed negative. PHYSICAL EXAMINATION: GENERAL: Comfortable in bed, no acute distress. VITAL SIGNS: Temperature 98.7, heart rate 80 per minute, respiratory rate 18 per minute, blood pressure 120/70, pulse ox is 97% room air. HEENT: Pallor positive. NECK: No lymphadenopathy. CHEST: Air entry present equal, bilateral. No added sound. CARDIOVASCULAR: S1, S2 normal. No murmur. No gallop. ABDOMEN: Soft, nontender. No hepatosplenomegaly. EXTREMITIES: No edema. BOOT TRIMMER: Alert, oriented x3. No focal, sensory, motor deficit. SKIN: No petechiae. No rash. LABORATORY DATA: White count 14.2, hemoglobin 14.5, hematocrit 41.9, platelet 219. Sodium 142, potassium 3.8, BUN 27, creatinine and glucose 107. Lymphocyte 87%. CAT scan of the head unremarkable. ASSESSMENT AND PLAN: 1. Status post fall. 2. Leukocytosis. 3. Atrial fibrillation. 4. Hypertension. PLAN . She will be admitted to the hospital. IV fluid at 80 mL an hour normal saline, ceftriaxone 1 g daily. Urine culture culture will be sent. Renal functions within normal limits. She has leukocytosis 14,000 white count. We will start ceftriaxone 1 g daily. Possible urinary tract infection. Heart-healthy diet. We will continue to monitor closely during hospitalization. Ashlee Thornton MD [facility] # [id number]
[2017-11-17 11:37] LABS: BLOOD UREA NITROGEN 17 mg/dL (7-21); CALCIUM 9.3 mg/dL (8.4-10.5); GFR AFRICAN-AMERICAN > 60; GFR NON-AFRICAN AMERICAN > 60
[2017-11-17 12:28] LABS: PH,URINE 6.5 (4.7-8.0); URINE BILIRUBIN NEGATIVE (NEGATIVE); URINE BLOOD NEGATIVE (NEGATIVE); URINE GLUCOSE (UA) NEGATIVE (NEGATIVE); URINE LEUKOCYTE ESTERASE SMALL Leu/uL (NEGATIVE); URINE PROTEIN NEGATIVE mg/dL (<30 mg/dL); URINE UROBILINOGEN 0.2 E.U./dL (<1 E.U./dL)
[2017-11-17 12:31] LABS: URINE APPEARANCE CLEAR (CLEAR); URINE COLOR LIGHT YELLOW (YELLOW)
[2017-11-17 12:41] LABS: URINE BACTERIA NEG (NEG); URINE EPITHELIAL CELLS 0 - 2 /hpf (0-5); URINE RBC 0 - 2 /hpf (0-2); URINE WBC 0 - 2 /hpf (0-6)
[2017-11-18] MEDS: cefTRIAXone 1 gm 1 GM/100 ML BAG IVPB SCH (10:32)
--- NOTE | 2017-11-18 19:09 | PN ---
DATE: 11/18/2017 SUBJECTIVE: She is comfortable in bed, in no acute distress. She is not ambulating. No fever overnight. Urine culture showing gram-positive cocci, less than colonies. No fever. No cough with expectoration. REVIEW OF SYSTEMS: As per HPI. Rest of 12-point review of systems reviewed and negative. PHYSICAL EXAMINATION: GENERAL: Comfortable in bed, in no acute distress. VITAL SIGNS: Temperature 98.8, heart rate is 80 per minute, blood pressure 130/70, respiratory rate 20 per minute, oxygen saturation 95% on room air. HEENT: Pallor positive. NECK: No lymphadenopathy. CHEST: Air entry present and equal bilateral. No added sounds. CARDIOVASCULAR: S1, S2 normal. No murmur. No gallop. ABDOMEN: Soft, nontender. No hepatosplenomegaly. EXTREMITIES: No edema. SKIN: No petechia. LABORATORY DATA: Urine culture, gram-positive cocci, less than colonies. Hemoglobin 14.5, platelet 217, white count 14.2. MEDICATIONS: Ceftriaxone, aspirin, IV fluid. ASSESSMENT: 1. Status post fall. 2. Leukocytosis. 3. Hypertension. 4. Atrial fibrillation. PLAN: Heart rate is controlled with current medications. Hemoglobin and hematocrit stable. Urine culture, insufficient colonies. We will continue IV antibiotic until discharge. Continue Pepcid daily. Daughter at bedside. She complains that she is deconditioned, unable to ambulate, Transitional Care Unit consult requested. Possible transport to Transitional Care Unit. Ashlee Thornton MD
[2017-11-19] MEDS: cefTRIAXone 1 gm 1 GM/100 ML BAG IVPB SCH ×2 (09:20→13:31)
--- NOTE | 2017-11-19 10:06 | PN ---
DATE: 11/19/2017 SUBJECTIVE: The patient has no complaints of any chest pain. No shortness of breath. She denies any pain. She is hard of hearing. PHYSICAL EXAMINATION: VITAL SIGNS: Temperature is 97.1, pulse is 77, blood pressure 171/77, respirations 20. GENERAL: The patient is lying in bed, flat, comfortable. HEENT: No oral lesion. Anicteric sclerae. Moist mucosa. NECK: No JVD, adenopathy, or thyromegaly. CARDIOVASCULAR: S1 and S2, regular. No murmurs, rubs, or gallops. LUNGS: Clear to auscultation bilaterally. No wheeze, rales, or rhonchi. ABDOMEN: Bowel sounds are positive. Soft, nontender and nondistended. EXTREMITIES: No cyanosis, clubbing or edema. LABORATORY DATA: White count is 7.7, hemoglobin 12.3, creatinine 0.7. ASSESSMENT: 1. Urinary tract infection secondary to Gram positive cocci. 2. Fall. 3. Hypertension. 4. Atrial fibrillation. 5. Hearing impairment. PLAN: The patient is currently on Rocephin for antibiotics for UTI. She is on aspirin. The patient is going to be seen by physical therapy. I will place a TCU evaluation in to see if she qualifies. I did speak to the patient's daughter to give her an update and she is concerned that the patient was not seen by Physical Therapy for the last two days. She was also concerned that the ER did not mention that she had urinary tract infection. In fact, they said that she did not have urinary tract infection. Her cultures are positive for Gram-positive cocci. She did have an elevated white count of 14.2 when she was admitted to the hospital. an observation, she did say that she would like to keep the patient as an observation from the ER. I did explain to her that this is going to delay the acceptance to the Transitional Care Unit because today is first day of admission. I had placed an admission order in yesterday thinking that she probably will need a rehab. She will need two more days of acute admission to the hospital to qualify for subacute or Transitional Care Unit. We will try to get her out of bed and have Physical Therapy see the patient. Neo Ponce MD [facility] # [id number]
[2017-11-19] MEDS ORDERED: Cefpodoxime (Vantin) 200 mg Tab PO SCH (22:00)
[2017-11-20 06:36] LABS: HEMOGLOBIN 12.7 g/dL (12.0-16.0); MEAN CELL VOLUME 89.4 fl (80.0-105.0); MEAN CORPUSCULAR HGB CONC 33.5 g/dl (31.0-37.0); MEAN PLATELET VOLUME 9.2 fl (7.0-11.0); RBC 4.24 10^6/uL (3.5-6.1); RED CELL DISTRIBUTION WIDTH 14.3 % (11.5-14.5)
[2017-11-20 07:24] LABS: ALB/GLOB RATIO 1.2 (1.1-1.8); ALBUMIN 3.3 g/dL (3.0-4.8); ALT/SGPT 34 U/L (7-56); AST/SGOT 30 U/L (14-36); BLOOD UREA NITROGEN 18 mg/dL (7-21); CALCIUM 9.9 mg/dL (8.4-10.5); GFR AFRICAN-AMERICAN > 60; GFR NON-AFRICAN AMERICAN > 60
--- NOTE | 2017-11-20 07:32 | PN ---
DATE: 11/20/2017 SUBJECTIVE: The patient has no complaints of any chest pain. No shortness of breath. No headaches or dizziness. PHYSICAL EXAMINATION: VITAL SIGNS: Temperature is 97.6, pulse of 77, blood pressure 154/95, respirations 20. GENERAL: The patient is lying in bed, flat, comfortable. HEENT: No oral lesion. Anicteric sclerae. Moist mucosa. NECK: No JVD, adenopathy, or thyromegaly. CARDIOVASCULAR: S1 and S2, regular. No murmurs, rubs, or gallops. LUNGS: Clear to auscultation bilaterally. No wheeze, rales, or rhonchi. ABDOMEN: Bowel sounds are positive. Soft, nontender and nondistended. EXTREMITIES: No cyanosis, clubbing or edema. ASSESSMENT: 1. Urinary tract infection secondary to Gram-positive cocci. 2. Fall. 3. Hypertension. 4. Atrial fibrillation. 5. Hearing impairment. PLAN: The patient was seen by Physical Therapy yesterday. It is recommended the patient go to the Transitional Care Unit. The patient does have a urinary tract infection secondary to Gram-positive cocci. I did speak to the patient's daughter yesterday to give her an update. The patient is on Rocephin for antibiotics. She is on aspirin daily. She is on a heart-healthy diet. We will continue with the current treatment and see if she qualifies for the Transitional Care Unit. Neo Ponce MD
[2017-11-20] MEDS: cefTRIAXone 1 gm 1 GM/100 ML BAG IVPB SCH (09:03)
[2017-11-20] MEDS ORDERED: Cefpodoxime (Vantin) 200 mg Tab PO SCH (10:00)
[2017-11-20 19:01] VITALS: O2SAT 97
[2017-11-21 09:00] VITALS: BP 161/82; PULSE 66; RESP 16; TEMP 97.6
[2017-11-21] MEDS: cefTRIAXone 1 gm 1 GM/100 ML BAG IVPB SCH (09:15)
--- NOTE | 2017-11-22 00:16 | DS ---
HISTORY OF PRESENT ILLNESS: The patient has no complaints of any chest pain. No shortness of breath, no headaches. She had a fall and has been getting physical therapy. She is waiting to go to Transitional Care Unit. I did speak to the patient's daughter to give an update. The patient had urine cultures that show minimal bacterial growth, she had been placed on antibiotics because she had a mildly elevated white count, her white count has improved. The patient is going to finish her antibiotics today. She will be discharged to Transitional Care Unit if she is accepted. PHYSICAL EXAMINATION: VITAL SIGNS: Temperature is 97.8, pulse of 63, blood pressure 140/67, respirations 18. GENERAL: The patient is lying in bed, flat, comfortable. HEENT: No oral lesion. Anicteric sclerae. Moist mucosa. NECK: No JVD, adenopathy, or thyromegaly. CARDIOVASCULAR: S1 and S2, regular. No murmurs, rubs, or gallops. LUNGS: Clear to auscultation bilaterally. No wheeze, rales, or rhonchi. ABDOMEN: Bowel sounds are positive, soft, nontender and nondistended. EXTREMITIES: No cyanosis, clubbing or edema. ASSESSMENT: 1. Fall. 2. Urinary tract infection. 3. Hypertension. 4. Hearing impairment. PLAN: The patient is currently comfortable. She is on aspirin. She Is going to continue with Rocephin for antibiotics. She does have difficulty in walking. She had a CT of the head, which shows no acute findings. Condition is stable. Activities, increase as tolerated. Neo Ponce MD
== END 2017-11-21 12:29 | DRG 690 ==
LOC: ED 13:22 → ERH 16:47 → 3RSO 18:27 → OBSVTOIN 11-18 18:10
PROVIDERS: ADMIT Internal Medicine Nephrology; ATTEND Internal Medicine Nephrology
DX: N39.0 Urinary tract infection, site not specified (principal); S00.03XA Contusion of scalp, initial encounter; I10 Essential (primary) hypertension; H91.90 Unspecified hearing loss, unspecified ear; I48.91 Unspecified atrial fibrillation; R53.1 Weakness; B96.89 Other specified bacterial agents as the cause of diseases classified elsewhere; R26.2 Difficulty in walking, not elsewhere classified; Z79.82 Long term (current) use of aspirin; W19.XXXA Unspecified fall, initial encounter

== ENCOUNTER 2017-11-21 12:36 | Inpatient (IN) | payer MEDICARE, OTHER ==
[2017-11-21 17:10] VITALS: BMI 21.2
[2017-11-21] MEDS ORDERED: Pneumococcal 23-Valent Vaccine IM ONE (17:10)
--- NOTE | 2017-11-23 04:23 | HP ---
DATE OF EXAM: CHIEF COMPLAINT AND HISTORY OF PRESENT ILLNESS: This is an 87-year-old female who has come into the hospital after she had fall and difficulty walking. She was brought into the transitional care unit for rehab. The patient has no complaints of any chest pain. No shortness of breath. No headaches or dizziness. She is feeling better. ALLERGIES: NO KNOWN DRUG ALLERGIES. HOME MEDICATIONS: Aspirin. SOCIAL HISTORY: She does not smoke, drink or use drugs. FAMILY HISTORY: Noncontributory. PHYSICAL EXAMINATION: VITAL SIGNS: Temperature is 98.1, pulse of , blood pressure 108/76, respirations 19. GENERAL: The patient lying in bed, uncomfortable, and in no acute distress. HEENT: Atraumatic and normocephalic. Anicteric sclerae. Moist mucosa. [place] conjunctivae. No oral lesions. NECK: No JVD, anterior and posterior adenopathy, thyromegaly, or bruits. CARDIOVASCULAR: S1 and S2 regular. No murmur, rubs, or gallop. LUNGS: Clear to auscultation bilaterally. No wheezes, rales, or rhonchi. ABDOMEN: Bowel sounds are positive. Soft, nontender and nondistended. No hepatosplenomegaly. No rebound and no guarding EXTREMITIES: No cyanosis, clubbing, or edema. NEUROLOGIC: No facial asymmetry. Tongue is midline. No uvula deviation. Power is 5/5 upper extremity and lower extremity. Sensation intact in upper extremity and lower extremity. PSYCHIATRIC: She is awake, alert and oriented x3. No anxiety or depression. She has normal affect. GENITOURINARY: No CVA tenderness. VASCULAR: 2+ pulses in the carotid pulses and pedal pulses. SKIN: No erythema or nodules SPINE: Shows normal curvature. LABORATORY DATA: No new labs. ASSESSMENT: 1. Urinary tract infection, resolved. 2. Fall. 3. Hypertension. 4. Hearing impairment. PLAN: The patient is currently comfortable. She was placed on amlodipine but blood pressure is no longer elevated. She is on aspirin. She is going to be on heart-healthy diet. Neo Ponce MD [facility] # [id number]
[2017-11-23 16:10] VITALS: RESP 18
--- NOTE | 2017-11-24 12:21 | PN ---
DATE: 11/24/2017 SUBJECTIVE: The patient has no complaints of any chest pain. No shortness of breath. No headaches or dizziness. PHYSICAL EXAMINATION: VITAL SIGNS: Temperature is 98, pulse of 56, blood pressure is 129/76, respirations 18. GENERAL: The patient is lying in bed, flat, comfortable. HEENT: No oral lesion. Anicteric sclerae. Moist mucosa. NECK: No JVD, adenopathy, or thyromegaly. CARDIOVASCULAR: S1 and S2, regular. No murmurs, rubs, or gallops. LUNGS: Clear to auscultation bilaterally. No wheeze, rales, or rhonchi. ABDOMEN: Bowel sounds are positive, soft, nontender and nondistended. EXTREMITIES: No cyanosis, clubbing or edema. ASSESSMENT: 1. Urinary tract infection, resolved. 2. Fall. 3. Hypertension. 4. Hearting impairment. PLAN: The patient is now requiring blood pressure medication. Blood pressure has been stable. She is getting physical therapy. I did speak to the patient's son and daughter this morning. They considering to take the patient home in 2 days on Sunday. Neo Ponce MD
[2017-11-24] MEDS: Promethazine 6.25 MG/5 ML CUP PO PRN ×2 (18:30→22:35)
[2017-11-25] MEDS: Promethazine 6.25 MG/5 ML CUP PO PRN ×4 (09:24→22:32)
[2017-11-26 06:16] VITALS: BP 145/92; PULSE 67; TEMP 97.8; O2SAT 98
[2017-11-26] MEDS: Promethazine 6.25 MG/5 ML CUP PO PRN (10:33)
--- NOTE | 2017-11-27 08:52 | DS ---
HISTORY OF PRESENT ILLNESS: This is an 87-year-old female who had come into the hospital for physical therapy. She was complaining of weakness. She is working with physical therapy and is getting stronger. She has been ambulating better. She is going to be discharged home to follow up as an outpatient. I just speak to the patient's daughter at the bedside to give an update. She has no complaints of any headaches or dizziness. No nausea. She has been eating well and sleeping well. PHYSICAL EXAMINATION VITAL SIGNS: Temperature is 97.8, pulse of 67, blood pressure is 149/92, respirations 18. GENERAL: The patient is lying in bed, flat, comfortable. HEENT: No oral lesion. Anicteric sclerae. Moist mucosa. NECK: No JVD, adenopathy, or thyromegaly. CARDIOVASCULAR: S1 and S2, regular. No murmurs, rubs, or gallops. LUNGS: Clear to auscultation bilaterally. No wheeze, rales, or rhonchi. ABDOMEN: Bowel sounds are positive, soft, nontender and nondistended. EXTREMITIES: No cyanosis, clubbing or edema. ASSESSMENT: 1. Urinary tract infection, resolved. 2. Fall. 3. Hypertension. 4. Hearing impairment. PLAN: The patient is on cough medication with promethazine. She is on aspirin. The patient is going to be discharged home today. She is going to get outpatient physical therapy. I did write a prescription for her for the outpatient physical therapy. CONDITION: Stable. ACTIVITIES: Increase as tolerated. Neo Ponce MD
== END 2017-11-26 13:32 | disposition home or self-care (01) | DRG 690 ==
LOC: TRCU 12:36
PROVIDERS: ADMIT Internal Medicine Nephrology; ATTEND Internal Medicine Nephrology
PROC: F07Z9FZ Gait Training/Functional Ambulation Treatment using Assistive, Adaptive, Supportive or Protective Equipment (ICD-10-PCS; principal; 2017-11-21)
PROC: F07M6ZZ Therapeutic Exercise Treatment of Musculoskeletal System - Whole Body (ICD-10-PCS; 2017-11-21)
PROC: F08Z1ZZ Dressing Techniques Treatment (ICD-10-PCS; 2017-11-21)
PROC: F08Z2ZZ Grooming/Personal Hygiene Treatment (ICD-10-PCS; 2017-11-21)
PROC: F08Z0ZZ Bathing/Showering Techniques Treatment (ICD-10-PCS; 2017-11-21)
DX: N39.0 Urinary tract infection, site not specified (principal); I10 Essential (primary) hypertension; H91.90 Unspecified hearing loss, unspecified ear; R05 Cough; Z91.81 History of falling